=== PATIENT | male | born 1970 | race Caucasian/White ===

== ENCOUNTER 2017-06-20 16:59 | Inpatient (IN) | payer OTHER ==
[2017-06-20 18:18] LABS: ADD MAN DIFF? NO
[2017-06-20 18:20] LABS: WHITE BLOOD COUNT 8.8 10^3/ul (4.8-10.8)
[2017-06-20 18:20] LABS: BASOPHIL # 0.1 10^3/ul (0.0-0.1); EOSINOPHILS # 0.2 10^3/ul (0.0-0.5); EOSINOPHILS % 1.8 % (0.0-7.0); HEMATOCRIT 39.2 % (42.0-52.0); HEMOGLOBIN 12.5 g/dl (14.0-18.0); LYMPHOCYTES # 1.7 10^3/ul (0.8-2.9); LYMPHOCYTES % 19.2 % (15.0-51.0); MEAN CORPUSCULAR HEMOGLOBIN 29.5 pg (29.0-33.0); MEAN CORPUSCULAR HGB CONC 31.9 g/dl (32.0-37.0); MEAN CORPUSCULAR VOLUME 92.5 fl (82.0-101.0); MEAN PLATELET VOLUME 11.4 fl (7.4-10.4); MONOCYTE # 0.6 10^3/ul (0.3-0.9); MONOCYTES % 6.9 % (0.0-11.0); NEUTROPHIL # 6.2 10^3/ul (1.6-7.5); NEUTROPHILS % 70.8 % (39.0-77.0); NUCLEATED RED BLOOD CELLS # 0.1 10^3/ul (0.0-0.0); NUCLEATED RED BLOOD CELLS% 0.6 /100WBC (0.0-0.0); PLATELET COUNT 373 10^3/UL (140-415); RED BLOOD COUNT 4.24 10^6/ul (4.70-6.10); RED CELL DISTRIBUTION WIDTH 15.4 % (11.5-14.5)
[2017-06-20 18:38] LABS: ALANINE AMINOTRANSFERASE 78 IU/L (13-69); ALBUMIN 2.7 g/dl (3.3-4.9); ALBUMIN/GLOBULIN RATIO 0.87; ALKALINE PHOSPHATASE 385 IU/L (42-121); ANION GAP 14 (8-16); ASPARTATE AMINO TRANSFERASE 78 IU/L (15-46); BILIRUBIN,INDIRECT 0.9 mg/dl (0-1.1); BILIRUBIN,TOTAL 0.9 mg/dl (0.2-1.3); BLOOD UREA NITROGEN 51 mg/dl (7-20); CALCIUM 8.6 mg/dl (8.4-10.2); CARBON DIOXIDE 24 mmol/L (21-31); CHLORIDE 103 mmol/L (97-110); GLUCOSE 131 mg/dl (70-220); SODIUM 136 mmol/L (135-144); TOTAL PROTEIN 5.8 g/dl (6.1-8.1)
[2017-06-20 18:49] LABS: B-TYPE NATRIURETIC PEPTIDE 15500 PG/ML (0-125); TROPONIN-I 0.064 ng/ml (0.00-0.12)
[2017-06-20 18:54] LABS: INR 1.36; PT RATIO 1.3
[2017-06-20 18:55] LABS: PARTIAL THROMBOPLASTIN TIME 34.9 Sec (25.0-35.0)
[2017-06-20] MEDS ORDERED: ACETAMINOPHEN 325 MG TAB PO (19:30)
[2017-06-20] MEDS ORDERED: ONDANSETRON 4 MG INJ IV (19:30)
[2017-06-20 19:34] LABS: ADD UMIC YES; UR ASCORBIC ACID NEGATIVE (NEGATIVE); UR BILIRUBIN (Dip) NEGATIVE (NEGATIVE); UR BLOOD (Dip) 2+ mg/dL (NEGATIVE); UR CLARITY SLIGHTLY CLOUDY (CLEAR); UR COLOR YELLOW (YELLOW); UR GLUCOSE (Dip) 2+ mg/dL (NEGATIVE); UR KETONES (Dip) NEGATIVE (NEGATIVE); UR LEUKOCYTE ESTERASE (Dip) NEGATIVE Leu/ul (NEGATIVE); UR NITRITE (Dip) NEGATIVE (NEGATIVE); UR RBC 1 /HPF (0-5); UR SPECIFIC GRAVITY (Dip) 1.018 (1.003-1.030); UR TOTAL PROTEIN (Dip) 3+ mg/dl (NEGATIVE); UR UROBILINOGEN (Dip) NEGATIVE (NEGATIVE); UR WBC 2 /HPF (0-5)
[2017-06-20] MEDS: FUROSEMIDE 40 MG INJ IV (19:46)
[2017-06-20] MEDS ORDERED: DEXTROSE 50% 50 ML SYRINGE (21:38)
[2017-06-20] MEDS ORDERED: ALBUTEROL/IPRATROPIUM (NEB) 3 ML AMP HHN (22:00)
[2017-06-20 22:29] LABS: HAAIG REFLEX REFLEX FILED
[2017-06-20 22:46] LABS: CREATINE KINASE 354 IU/L (23-200)
[2017-06-20 22:51] LABS: GLUCOSE 134 mg/dl (70-220)
[2017-06-20 22:59] LABS: CK INDEX 2.8; CK-MB 9.85 ng/ml (0.0-2.4); TROPONIN-I 0.067 ng/ml (0.00-0.12)
[2017-06-20 23:23] LABS: HEPATITIS B SURFACE ANTIGEN NEGATIVE (NEGATIVE)
[2017-06-20 23:27] LABS: CREATININE,URINE RANDOM 131.52 mg/dl (20-370)
[2017-06-20 23:41] LABS: HEPATITIS B CORE ANTIBODY NEGATIVE (NEGATIVE); HEPATITIS C VIRAL ANTIBODY NEGATIVE (NEGATIVE)
[2017-06-20] MEDS: GABAPENTIN 100 MG CAP PO (23:45)
[2017-06-20] MEDS: AMITRIPTYLINE 25 MG TAB PO (23:45)
[2017-06-21 00:49] LABS: PROTEIN URINE > 600.0 mg/dl (0.0-11.9)
[2017-06-21 00:50] LABS: PROTEIN/CREAT RATIO 10.11 RATIO
[2017-06-21] MEDS ORDERED: GLUCAGON 1 MG INJ IM (02:00)
[2017-06-21] MEDS ORDERED: GLUCOSE GEL 15 GRAM TUBE BUCCAL (02:00)
[2017-06-21] MEDS ORDERED: GLUCOSE GEL 15 GRAM TUBE PO (02:00)
[2017-06-21] MEDS: ACCU-CHEK XX (02:00)
[2017-06-21] MEDS: FUROSEMIDE 40 MG INJ IV ×2 (05:53→17:52)
[2017-06-21] MEDS: PANTOPRAZOLE (EC) 40 MG TAB PO (06:40)
[2017-06-21] MEDS: INSULIN ASPART [NOVOLOG] 3 ML PEN SC ×6 (07:55→20:54)
[2017-06-21] MEDS: INSULIN GLARGINE [LANtus] 3 ML PEN SC (08:11)
[2017-06-21] MEDS: GABAPENTIN 100 MG CAP PO ×2 (08:21→20:54)
[2017-06-21] MEDS: ASPIRIN 81 MG TAB PO (08:21)
[2017-06-21] MEDS: DOCUSATE SODIUM 100 MG CAP PO ×2 (08:21→21:26)
[2017-06-21] MEDS: ALLOPURINOL 100 MG TAB PO (08:21)
[2017-06-21 09:38] LABS: ADD MAN DIFF? NO
[2017-06-21 09:44] LABS: WHITE BLOOD COUNT 9.6 10^3/ul (4.8-10.8)
[2017-06-21 09:44] LABS: BASOPHIL # 0.1 10^3/ul (0.0-0.1); EOSINOPHILS # 0.4 10^3/ul (0.0-0.5); EOSINOPHILS % 4.2 % (0.0-7.0); HEMATOCRIT 41.7 % (42.0-52.0); HEMOGLOBIN 13.5 g/dl (14.0-18.0); LYMPHOCYTES # 1.4 10^3/ul (0.8-2.9); LYMPHOCYTES % 15.1 % (15.0-51.0); MEAN CORPUSCULAR HEMOGLOBIN 29.7 pg (29.0-33.0); MEAN CORPUSCULAR HGB CONC 32.4 g/dl (32.0-37.0); MEAN CORPUSCULAR VOLUME 91.9 fl (82.0-101.0); MEAN PLATELET VOLUME 11.3 fl (7.4-10.4); MONOCYTE # 0.5 10^3/ul (0.3-0.9); NEUTROPHIL # 7.1 10^3/ul (1.6-7.5); NEUTROPHILS % 74.3 % (39.0-77.0); NUCLEATED RED BLOOD CELLS% 0.3 /100WBC (0.0-0.0); PLATELET COUNT 371 10^3/UL (140-415); RED BLOOD COUNT 4.54 10^6/ul (4.70-6.10); RED CELL DISTRIBUTION WIDTH 15.7 % (11.5-14.5)
[2017-06-21 10:03] LABS: ALANINE AMINOTRANSFERASE 145 IU/L (13-69); ALBUMIN 2.7 g/dl (3.3-4.9); ALKALINE PHOSPHATASE 412 IU/L (42-121); ANION GAP 13 (8-16); ASPARTATE AMINO TRANSFERASE 158 IU/L (15-46); BILIRUBIN,INDIRECT 0.7 mg/dl (0-1.1); BILIRUBIN,TOTAL 0.7 mg/dl (0.2-1.3); BLOOD UREA NITROGEN 53 mg/dl (7-20); CALCIUM 9.1 mg/dl (8.4-10.2); CARBON DIOXIDE 28 mmol/L (21-31); CHLORIDE 103 mmol/L (97-110); CREATINE KINASE 223 IU/L (23-200); CREATININE 4.93 mg/dl (0.61-1.24); GLUCOSE 89 mg/dl (70-220); POTASSIUM 4.8 mmol/L (3.5-5.1); SODIUM 139 mmol/L (135-144); TOTAL PROTEIN 5.7 g/dl (6.1-8.1)
[2017-06-21 10:04] LABS: PHOSPHORUS 5.8 mg/dl (2.5-4.9)
[2017-06-21 10:13] LABS: CK INDEX 3.8
[2017-06-21 10:17] LABS: CK-MB 8.45 ng/ml (0.0-2.4)
[2017-06-21 10:19] LABS: TROPONIN-I 0.133 ng/ml (0.00-0.12)
[2017-06-21 10:21] LABS: HEMOGLOBIN A1C 6.7 % (0-5.9)
[2017-06-21] MEDS: DEXTROSE 50% 50 ML SYRINGE IV ×4 (11:56→20:47)
[2017-06-21 13:25] LABS: CREATININE,URINE RANDOM 43.91 mg/dl (20-370)
[2017-06-21 13:32] LABS: PROTEIN/CREAT RATIO 8.79 RATIO
[2017-06-21] MEDS: traMADol 50 MG TAB PO (15:09)
[2017-06-21] MEDS: DEXTROSE 5%-0.45% NACL 1,000 ML IV (17:39)
[2017-06-21 19:16] LABS: CREATINE KINASE 183 IU/L (23-200)
[2017-06-21 19:17] LABS: GLUCOSE 161 mg/dl (70-220)
[2017-06-21] MEDS: DEXTROSE 10% 1,000 ML IV ×2 (19:30→20:00)
[2017-06-21 19:31] LABS: CK INDEX 4.9
[2017-06-21 19:34] LABS: CK-MB 8.89 ng/ml (0.0-2.4)
[2017-06-21] MEDS: AMITRIPTYLINE 25 MG TAB PO (20:53)
[2017-06-21] MEDS: METOPROLOL 25 MG TAB PO (20:53)
[2017-06-21] MEDS: ATORVASTATIN 10 MG TAB PO (20:53)
[2017-06-21] MEDS ORDERED: SPECIAL NON-STANDARD MEDICATION PO (21:00)
[2017-06-21 21:16] LABS: GLUCOSE 31 mg/dl (70-220)
[2017-06-22 01:20] LABS: CREATINE KINASE 160 IU/L (23-200)
[2017-06-22 01:30] LABS: CK INDEX 5.5
[2017-06-22 01:34] LABS: CK-MB 8.77 ng/ml (0.0-2.4)
[2017-06-22] MEDS: ACCU-CHEK XX (02:00)
[2017-06-22] MEDS: FUROSEMIDE 40 MG INJ IV ×2 (06:20→18:14)
[2017-06-22] MEDS: PANTOPRAZOLE (EC) 40 MG TAB PO (06:20)
[2017-06-22 07:10] LABS: ADD MAN DIFF? NO
[2017-06-22 07:21] LABS: WHITE BLOOD COUNT 9.4 10^3/ul (4.8-10.8)
[2017-06-22 07:21] LABS: BASOPHIL # 0.1 10^3/ul (0.0-0.1); BASOPHILS % 0.6 % (0.0-2.0); EOSINOPHILS # 0.4 10^3/ul (0.0-0.5); EOSINOPHILS % 4.6 % (0.0-7.0); HEMATOCRIT 41.6 % (42.0-52.0); HEMOGLOBIN 13.2 g/dl (14.0-18.0); LYMPHOCYTES # 1.5 10^3/ul (0.8-2.9); LYMPHOCYTES % 15.9 % (15.0-51.0); MEAN CORPUSCULAR HEMOGLOBIN 29.5 pg (29.0-33.0); MEAN CORPUSCULAR HGB CONC 31.7 g/dl (32.0-37.0); MEAN CORPUSCULAR VOLUME 92.9 fl (82.0-101.0); MEAN PLATELET VOLUME 11.3 fl (7.4-10.4); MONOCYTE # 0.7 10^3/ul (0.3-0.9); MONOCYTES % 7.1 % (0.0-11.0); NEUTROPHIL # 6.7 10^3/ul (1.6-7.5); NEUTROPHILS % 71.5 % (39.0-77.0); PLATELET COUNT 330 10^3/UL (140-415); RED BLOOD COUNT 4.48 10^6/ul (4.70-6.10); RED CELL DISTRIBUTION WIDTH 15.7 % (11.5-14.5)
[2017-06-22 07:45] LABS: PHOSPHORUS 5.5 mg/dl (2.5-4.9)
[2017-06-22 07:48] LABS: CHOL/HDL RATIO 2.1 RATIO; HDL CHOLESTEROL 74 mg/dl (27-67); LDL CHOLESTEROL,CALCULATED 64 mg/dl; TRIGLYCERIDES 112 mg/dl (0-149)
[2017-06-22 07:48] LABS: CHOLESTEROL 160 mg/dl (100-200)
[2017-06-22] MEDS: INSULIN ASPART [NOVOLOG] 3 ML PEN SC ×4 (07:55→21:05)
[2017-06-22 08:34] LABS: ANION GAP 10 (8-16); BLOOD UREA NITROGEN 54 mg/dl (7-20); CALCIUM 8.4 mg/dl (8.4-10.2); CARBON DIOXIDE 30 mmol/L (21-31); CHLORIDE 104 mmol/L (97-110); CREATININE 4.95 mg/dl (0.61-1.24); GLUCOSE 101 mg/dl (70-220); POTASSIUM 3.9 mmol/L (3.5-5.1); SODIUM 140 mmol/L (135-144)
[2017-06-22] MEDS ORDERED: FUROSEMIDE 40 MG INJ IV (09:00)
[2017-06-22] MEDS: ASPIRIN 81 MG TAB PO (09:42)
[2017-06-22] MEDS: GABAPENTIN 100 MG CAP PO ×2 (09:43→20:54)
[2017-06-22] MEDS: DOCUSATE SODIUM 100 MG CAP PO ×2 (09:43→20:54)
[2017-06-22] MEDS: METOPROLOL 25 MG TAB PO (09:43)
[2017-06-22] MEDS: ALLOPURINOL 100 MG TAB PO (09:44)
[2017-06-22] MEDS ORDERED: HEPARIN 1000 UNITS/ML 10 ML INJ IV (13:30)
[2017-06-22] MEDS: HEPARIN 1000 UNITS/ML 10 ML INJ IV ×2 (13:30→16:51)
[2017-06-22 14:36] LABS: ADD MAN DIFF? NO
[2017-06-22 14:44] LABS: BASOPHIL # 0.1 10^3/ul (0.0-0.1); BASOPHILS % 0.6 % (0.0-2.0); EOSINOPHILS # 0.5 10^3/ul (0.0-0.5); EOSINOPHILS % 5.7 % (0.0-7.0); HEMOGLOBIN 12.3 g/dl (14.0-18.0); LYMPHOCYTES # 1.3 10^3/ul (0.8-2.9); LYMPHOCYTES % 13.6 % (15.0-51.0); MEAN CORPUSCULAR HEMOGLOBIN 29.5 pg (29.0-33.0); MEAN CORPUSCULAR HGB CONC 32.4 g/dl (32.0-37.0); MEAN CORPUSCULAR VOLUME 91.1 fl (82.0-101.0); MEAN PLATELET VOLUME 11.6 fl (7.4-10.4); MONOCYTE # 0.5 10^3/ul (0.3-0.9); MONOCYTES % 5.1 % (0.0-11.0); NEUTROPHIL # 6.9 10^3/ul (1.6-7.5); NEUTROPHILS % 74.7 % (39.0-77.0); NUCLEATED RED BLOOD CELLS% 0.2 /100WBC (0.0-0.0); PLATELET COUNT 295 10^3/UL (140-415); RED BLOOD COUNT 4.17 10^6/ul (4.70-6.10); RED CELL DISTRIBUTION WIDTH 15.7 % (11.5-14.5)
[2017-06-22 14:44] LABS: WHITE BLOOD COUNT 9.3 10^3/ul (4.8-10.8)
[2017-06-22 15:01] LABS: INR 1.17; PARTIAL THROMBOPLASTIN TIME 32.6 Sec (25.0-35.0); PROTIME 15.1 Sec (11.9-14.9); PT RATIO 1.2
[2017-06-22] MEDS: HEPARIN 25000 UNITS/250 ML 250 ML IV (16:52)
[2017-06-22 19:47] LABS: PTH CALCIUM 8.6 mg/dL (8.6-10.3)
[2017-06-22] MEDS: ATORVASTATIN 10 MG TAB PO (20:54)
[2017-06-22] MEDS: AMITRIPTYLINE 25 MG TAB PO (20:55)
[2017-06-22] MEDS: METOPROLOL (XL) 25 MG TAB PO (20:55)
[2017-06-22 23:19] LABS: INR 1.19; PROTIME 15.3 Sec (11.9-14.9); PT RATIO 1.2
[2017-06-22 23:58] LABS: PARTIAL THROMBOPLASTIN TIME 101.7 Sec (25.0-35.0)
[2017-06-23] MEDS: ACCU-CHEK XX (02:03)
[2017-06-23] MEDS: FUROSEMIDE 40 MG INJ IV ×2 (06:05→09:26)
[2017-06-23 06:11] LABS: ADD MAN DIFF? NO
[2017-06-23 06:24] LABS: PLATELET COUNT 312 10^3/UL (140-415)
[2017-06-23 06:26] LABS: WHITE BLOOD COUNT 9.3 10^3/ul (4.8-10.8)
[2017-06-23 06:26] LABS: BASOPHIL # 0.1 10^3/ul (0.0-0.1); BASOPHILS % 0.7 % (0.0-2.0); EOSINOPHILS # 0.4 10^3/ul (0.0-0.5); EOSINOPHILS % 4.4 % (0.0-7.0); HEMATOCRIT 40.7 % (42.0-52.0); HEMOGLOBIN 12.9 g/dl (14.0-18.0); LYMPHOCYTES # 1.2 10^3/ul (0.8-2.9); LYMPHOCYTES % 12.5 % (15.0-51.0); MEAN CORPUSCULAR HEMOGLOBIN 29.2 pg (29.0-33.0); MEAN CORPUSCULAR HGB CONC 31.7 g/dl (32.0-37.0); MEAN CORPUSCULAR VOLUME 92.1 fl (82.0-101.0); MEAN PLATELET VOLUME 11.7 fl (7.4-10.4); MONOCYTE # 0.6 10^3/ul (0.3-0.9); MONOCYTES % 6.1 % (0.0-11.0); NEUTROPHIL # 7.1 10^3/ul (1.6-7.5); PLATELET COUNT 302 10^3/UL (140-415); RED BLOOD COUNT 4.42 10^6/ul (4.70-6.10); RED CELL DISTRIBUTION WIDTH 15.8 % (11.5-14.5)
[2017-06-23 06:48] LABS: INR 1.12; PROTIME 14.6 Sec (11.9-14.9); PT RATIO 1.1
[2017-06-23 06:49] LABS: PARTIAL THROMBOPLASTIN TIME 50.8 Sec (25.0-35.0)
[2017-06-23 06:56] LABS: ANION GAP 13 (8-16); BLOOD UREA NITROGEN 58 mg/dl (7-20); CALCIUM 8.4 mg/dl (8.4-10.2); CARBON DIOXIDE 28 mmol/L (21-31); CHLORIDE 102 mmol/L (97-110); CREATININE 4.78 mg/dl (0.61-1.24); GLUCOSE 342 mg/dl (70-220); POTASSIUM 4.8 mmol/L (3.5-5.1); SODIUM 138 mmol/L (135-144)
[2017-06-23 07:39] LABS: THROMBIN TIME 35.7 SEC (13.8-19.1)
[2017-06-23] MEDS: INSULIN ASPART [NOVOLOG] 3 ML PEN SC ×4 (08:25→20:32)
[2017-06-23] MEDS: DOCUSATE SODIUM 100 MG CAP PO ×2 (09:00→21:00)
[2017-06-23] MEDS: METOPROLOL (XL) 25 MG TAB PO ×2 (09:26→21:00)
[2017-06-23] MEDS: GABAPENTIN 100 MG CAP PO ×2 (09:27→21:00)
[2017-06-23] MEDS: PANTOPRAZOLE (EC) 40 MG TAB PO (09:27)
[2017-06-23] MEDS: ALLOPURINOL 100 MG TAB PO (09:27)
[2017-06-23] MEDS: ASPIRIN 81 MG TAB PO (09:28)
[2017-06-23] MEDS: LINAGLIPTIN 5 MG TABLET PO (13:09)
[2017-06-23 13:18] LABS: PLATELET COUNT 307 10^3/UL (140-415)
[2017-06-23 13:32] LABS: CREATINE KINASE 62 IU/L (23-200)
[2017-06-23 13:41] LABS: CK INDEX 5.1
[2017-06-23 13:42] LABS: CK-MB 3.18 ng/ml (0.0-2.4); INR 1.13; PROTIME 14.7 Sec (11.9-14.9); PT RATIO 1.1
[2017-06-23 13:43] LABS: PARTIAL THROMBOPLASTIN TIME 58.7 Sec (25.0-35.0); THROMBIN TIME 34.6 SEC (13.8-19.1)
[2017-06-23 13:46] LABS: TROPONIN-I 0.703 ng/ml (0.00-0.12)
[2017-06-23] MEDS: ALPRAZOLAM 0.25 MG TAB PO (16:32)
[2017-06-23] MEDS: HEPARIN 25000 UNITS/250 ML 250 ML IV (18:17)
[2017-06-23 19:04] LABS: PARTIAL THROMBOPLASTIN TIME 64.5 Sec (25.0-35.0)
[2017-06-23] MEDS: INSULIN GLARGINE [LANtus] 3 ML PEN SC (20:22)
[2017-06-23] MEDS: ATORVASTATIN 10 MG TAB PO (21:00)
[2017-06-23] MEDS: AMITRIPTYLINE 25 MG TAB PO (21:00)
[2017-06-24] MEDS: traMADol 50 MG TAB PO (00:46)
[2017-06-24] MEDS: ACCU-CHEK XX (01:00)
[2017-06-24 06:54] LABS: CREATINE KINASE 45 IU/L (23-200)
[2017-06-24 07:01] LABS: PARTIAL THROMBOPLASTIN TIME 63.8 Sec (25.0-35.0)
[2017-06-24 07:03] LABS: CK INDEX 4.6
[2017-06-24 07:04] LABS: CK-MB 2.09 ng/ml (0.0-2.4)
[2017-06-24 07:20] LABS: ANION GAP 16 (8-16); BLOOD UREA NITROGEN 58 mg/dl (7-20); CALCIUM 8.8 mg/dl (8.4-10.2); CARBON DIOXIDE 28 mmol/L (21-31); CHLORIDE 98 mmol/L (97-110); CREATININE 4.41 mg/dl (0.61-1.24); GLUCOSE 252 mg/dl (70-220); SODIUM 137 mmol/L (135-144)
[2017-06-24] MEDS: INSULIN ASPART [NOVOLOG] 3 ML PEN SC ×4 (08:10→21:21)
[2017-06-24] MEDS: INSULIN GLARGINE [LANtus] 3 ML PEN SC ×3 (08:10→22:41)
[2017-06-24] MEDS: DOCUSATE SODIUM 100 MG CAP PO ×2 (09:00→21:23)
[2017-06-24] MEDS: ALLOPURINOL 100 MG TAB PO (09:02)
[2017-06-24] MEDS: LINAGLIPTIN 5 MG TABLET PO (09:02)
[2017-06-24] MEDS: GABAPENTIN 100 MG CAP PO ×2 (09:02→21:23)
[2017-06-24] MEDS: PANTOPRAZOLE (EC) 40 MG TAB PO (09:02)
[2017-06-24] MEDS: METOPROLOL (XL) 25 MG TAB PO ×2 (09:03→21:23)
[2017-06-24] MEDS: ASPIRIN 81 MG TAB PO (09:03)
[2017-06-24] MEDS: FUROSEMIDE 40 MG INJ IV (09:03)
[2017-06-24 14:40] LABS: PARTIAL THROMBOPLASTIN TIME 57.7 Sec (25.0-35.0)
[2017-06-24] MEDS: AMITRIPTYLINE 25 MG TAB PO (21:23)
[2017-06-24] MEDS: ATORVASTATIN 10 MG TAB PO (21:23)
[2017-06-24] MEDS ORDERED: INSULIN GLARGINE [LANtus] 3 ML PEN SC (22:30)
[2017-06-24] MEDS: HEPARIN 25000 UNITS/250 ML 250 ML IV (23:44)
[2017-06-25] MEDS: ACCU-CHEK XX (02:00)
[2017-06-25 06:41] LABS: PTH INTACT 390 pg/mL (14-64)
[2017-06-25] MEDS: PANTOPRAZOLE (EC) 40 MG TAB PO (06:44)
[2017-06-25] MEDS: INSULIN ASPART [NOVOLOG] 3 ML PEN SC ×5 (07:55→20:22)
[2017-06-25] MEDS: ASPIRIN 81 MG TAB PO (08:53)
[2017-06-25] MEDS: LINAGLIPTIN 5 MG TABLET PO (08:53)
[2017-06-25] MEDS: GABAPENTIN 100 MG CAP PO ×2 (08:54→20:18)
[2017-06-25] MEDS: METOPROLOL (XL) 25 MG TAB PO ×2 (08:55→20:18)
[2017-06-25] MEDS: DOCUSATE SODIUM 100 MG CAP PO ×2 (08:55→20:19)
[2017-06-25] MEDS: FUROSEMIDE 40 MG INJ IV (08:55)
[2017-06-25] MEDS: ALLOPURINOL 100 MG TAB PO (08:55)
[2017-06-25 09:29] LABS: PARTIAL THROMBOPLASTIN TIME 56.3 Sec (25.0-35.0)
[2017-06-25] MEDS ORDERED: INSULIN ASPART [NOVOLOG] 3 ML PEN SC (17:55)
[2017-06-25 19:11] LABS: ANION GAP 12 (8-16); BLOOD UREA NITROGEN 61 mg/dl (7-20); CALCIUM 9.1 mg/dl (8.4-10.2); CARBON DIOXIDE 30 mmol/L (21-31); CHLORIDE 98 mmol/L (97-110); CREATININE 4.39 mg/dl (0.61-1.24); GLUCOSE 328 mg/dl (70-220); POTASSIUM 5.4 mmol/L (3.5-5.1); SODIUM 135 mmol/L (135-144)
[2017-06-25] MEDS ORDERED: INSULIN GLARGINE [LANtus] 3 ML PEN SC ×2 (20:00)
[2017-06-25] MEDS: ATORVASTATIN 10 MG TAB PO (20:18)
[2017-06-25] MEDS: AMITRIPTYLINE 25 MG TAB PO (20:18)
[2017-06-25] MEDS: INSULIN GLARGINE [LANtus] 3 ML PEN SC (20:21)
[2017-06-25 20:52] LABS: PARTIAL THROMBOPLASTIN TIME 45.2 Sec (25.0-35.0)
[2017-06-26] MEDS: ACCU-CHEK XX (01:26)
[2017-06-26] MEDS: PANTOPRAZOLE (EC) 40 MG TAB PO (07:25)
[2017-06-26] MEDS: INSULIN ASPART [NOVOLOG] 3 ML PEN SC ×8 (07:55→20:34)
[2017-06-26] MEDS: FUROSEMIDE 40 MG INJ IV (08:58)
[2017-06-26] MEDS: GABAPENTIN 100 MG CAP PO ×2 (09:00→20:19)
[2017-06-26] MEDS: ASPIRIN 81 MG TAB PO (09:00)
[2017-06-26] MEDS: DOCUSATE SODIUM 100 MG CAP PO ×2 (09:00→20:19)
[2017-06-26] MEDS: METOPROLOL (XL) 25 MG TAB PO ×2 (09:00→20:31)
[2017-06-26] MEDS: LINAGLIPTIN 5 MG TABLET PO (09:00)
[2017-06-26] MEDS: ALLOPURINOL 100 MG TAB PO (09:00)
[2017-06-26 12:25] LABS: ADD MAN DIFF? NO
[2017-06-26 12:33] LABS: BASOPHIL # 0.1 10^3/ul (0.0-0.1); BASOPHILS % 0.9 % (0.0-2.0); EOSINOPHILS # 0.3 10^3/ul (0.0-0.5); EOSINOPHILS % 3.2 % (0.0-7.0); HEMATOCRIT 41.2 % (42.0-52.0); HEMOGLOBIN 13.1 g/dl (14.0-18.0); LYMPHOCYTES # 1.1 10^3/ul (0.8-2.9); MEAN CORPUSCULAR HEMOGLOBIN 29.3 pg (29.0-33.0); MEAN CORPUSCULAR HGB CONC 31.8 g/dl (32.0-37.0); MEAN CORPUSCULAR VOLUME 92.2 fl (82.0-101.0); MONOCYTE # 0.6 10^3/ul (0.3-0.9); MONOCYTES % 7.8 % (0.0-11.0); NEUTROPHILS % 73.7 % (39.0-77.0); PLATELET COUNT 309 10^3/UL (140-415); RED BLOOD COUNT 4.47 10^6/ul (4.70-6.10); RED CELL DISTRIBUTION WIDTH 15.9 % (11.5-14.5)
[2017-06-26 12:33] LABS: WHITE BLOOD COUNT 8.1 10^3/ul (4.8-10.8)
[2017-06-26 12:54] LABS: ALANINE AMINOTRANSFERASE 63 IU/L (13-69); ALBUMIN 2.6 g/dl (3.3-4.9); ALBUMIN/GLOBULIN RATIO 0.83; ALKALINE PHOSPHATASE 312 IU/L (42-121); ANION GAP 10 (8-16); ASPARTATE AMINO TRANSFERASE 39 IU/L (15-46); BILIRUBIN,INDIRECT 0.5 mg/dl (0-1.1); BILIRUBIN,TOTAL 0.5 mg/dl (0.2-1.3); BLOOD UREA NITROGEN 66 mg/dl (7-20); CALCIUM 9.4 mg/dl (8.4-10.2); CARBON DIOXIDE 32 mmol/L (21-31); CHLORIDE 102 mmol/L (97-110); CREATININE 4.52 mg/dl (0.61-1.24); GLUCOSE 396 mg/dl (70-220); POTASSIUM 5.3 mmol/L (3.5-5.1); SODIUM 139 mmol/L (135-144); TOTAL PROTEIN 5.7 g/dl (6.1-8.1)
[2017-06-26] MEDS: HEPARIN 1000 UNITS/ML 10 ML INJ CATHETER (14:00)
[2017-06-26] MEDS ORDERED: SODIUM CHLORIDE 0.9% 1L BAG IV (17:00)
[2017-06-26] MEDS ORDERED: HEPARIN 1000 UNITS/ML 10 ML INJ CATHETER (17:00)
[2017-06-26] MEDS: NA POLYST SULFON 15 GM/60 ML BTL PO (18:25)
[2017-06-26] MEDS: ATORVASTATIN 10 MG TAB PO (20:19)
[2017-06-26] MEDS: traMADol 50 MG TAB PO (20:19)
[2017-06-26] MEDS: AMITRIPTYLINE 25 MG TAB PO (20:19)
[2017-06-26] MEDS: INSULIN GLARGINE [LANtus] 3 ML PEN SC (20:34)
[2017-06-26 20:43] LABS: GLUCOSE 432 mg/dl (70-220)
[2017-06-26] MEDS: ACETAMINOPHEN 325 MG TAB PO (23:35)
[2017-06-27] MEDS ORDERED: morphine LIQ (10 MG/5 ML) CUP PO (00:30)
[2017-06-27] MEDS: HYDROCODONE/APAP (5/325) TAB PO ×2 (00:58→22:42)
[2017-06-27] MEDS: ACCU-CHEK XX (02:00)
[2017-06-27] MEDS: PANTOPRAZOLE (EC) 40 MG TAB PO (06:25)
[2017-06-27] MEDS: GABAPENTIN 100 MG CAP PO ×2 (08:12→20:50)
[2017-06-27] MEDS: ASPIRIN 81 MG TAB PO (08:14)
[2017-06-27] MEDS: ALLOPURINOL 100 MG TAB PO (08:14)
[2017-06-27] MEDS: DOCUSATE SODIUM 100 MG CAP PO ×2 (08:15→20:50)
[2017-06-27] MEDS: LINAGLIPTIN 5 MG TABLET PO (08:16)
[2017-06-27] MEDS: INSULIN ASPART [NOVOLOG] 3 ML PEN SC ×7 (08:18→20:52)
[2017-06-27] MEDS: INSULIN GLARGINE [LANtus] 3 ML PEN SC ×2 (08:20→20:52)
[2017-06-27] MEDS: METOPROLOL (XL) 25 MG TAB PO ×2 (08:23→20:51)
[2017-06-27] MEDS: FUROSEMIDE 40 MG INJ IV (08:24)
[2017-06-27] MEDS: MANNITOL 25% 50 ML INJ IV* (11:17)
[2017-06-27] MEDS: MANNITOL 25% 50 ML INJ IV (12:06)
[2017-06-27 12:23] LABS: ANION GAP 9 (8-16); BLOOD UREA NITROGEN 58 mg/dl (7-20); CALCIUM 8.6 mg/dl (8.4-10.2); CARBON DIOXIDE 29 mmol/L (21-31); CHLORIDE 103 mmol/L (97-110); CREATININE 3.92 mg/dl (0.61-1.24); GLUCOSE 128 mg/dl (70-220); SODIUM 137 mmol/L (135-144)
[2017-06-27] MEDS: DIAZEPAM 5 MG TAB PO (13:30)
[2017-06-27] MEDS: DIPHENHYDRAMINE 50 MG CAP PO (13:30)
[2017-06-27] MEDS: AMITRIPTYLINE 25 MG TAB PO (20:50)
[2017-06-27] MEDS: ATORVASTATIN 10 MG TAB PO (20:51)
[2017-06-28] MEDS: traMADol 50 MG TAB PO (00:22)
[2017-06-28] MEDS: ACCU-CHEK XX (02:51)
[2017-06-28 07:02] LABS: ADD MAN DIFF? NO
[2017-06-28 07:12] LABS: WHITE BLOOD COUNT 7.3 10^3/ul (4.8-10.8)
[2017-06-28 07:12] LABS: BASOPHIL # 0.1 10^3/ul (0.0-0.1); BASOPHILS % 0.7 % (0.0-2.0); EOSINOPHILS # 0.4 10^3/ul (0.0-0.5); EOSINOPHILS % 5.5 % (0.0-7.0); HEMOGLOBIN 12.5 g/dl (14.0-18.0); LYMPHOCYTES # 1.5 10^3/ul (0.8-2.9); LYMPHOCYTES % 20.8 % (15.0-51.0); MEAN CORPUSCULAR HEMOGLOBIN 28.9 pg (29.0-33.0); MEAN CORPUSCULAR HGB CONC 31.3 g/dl (32.0-37.0); MEAN CORPUSCULAR VOLUME 92.4 fl (82.0-101.0); MEAN PLATELET VOLUME 11.7 fl (7.4-10.4); MONOCYTE # 0.5 10^3/ul (0.3-0.9); MONOCYTES % 7.4 % (0.0-11.0); NEUTROPHIL # 4.8 10^3/ul (1.6-7.5); NEUTROPHILS % 65.2 % (39.0-77.0); PLATELET COUNT 288 10^3/UL (140-415); RED BLOOD COUNT 4.33 10^6/ul (4.70-6.10); RED CELL DISTRIBUTION WIDTH 16.1 % (11.5-14.5)
[2017-06-28] MEDS: PANTOPRAZOLE (EC) 40 MG TAB PO (07:25)
[2017-06-28 07:28] LABS: PHOSPHORUS 4.1 mg/dl (2.5-4.9)
[2017-06-28 07:29] LABS: ANION GAP 9 (8-16); BLOOD UREA NITROGEN 44 mg/dl (7-20); CALCIUM 9.2 mg/dl (8.4-10.2); CARBON DIOXIDE 33 mmol/L (21-31); CHLORIDE 103 mmol/L (97-110); CREATININE 3.47 mg/dl (0.61-1.24); GLUCOSE 193 mg/dl (70-220); POTASSIUM 5.5 mmol/L (3.5-5.1); SODIUM 139 mmol/L (135-144)
[2017-06-28] MEDS: INSULIN ASPART [NOVOLOG] 3 ML PEN SC ×7 (07:55→20:52)
[2017-06-28] MEDS: ASPIRIN 81 MG TAB PO (08:45)
[2017-06-28] MEDS: GABAPENTIN 100 MG CAP PO ×2 (08:45→20:38)
[2017-06-28] MEDS: LINAGLIPTIN 5 MG TABLET PO (08:45)
[2017-06-28] MEDS: ALLOPURINOL 100 MG TAB PO (08:46)
[2017-06-28] MEDS: FUROSEMIDE 40 MG INJ IV (09:00)
[2017-06-28] MEDS: DOCUSATE SODIUM 100 MG CAP PO ×2 (09:00→20:38)
[2017-06-28] MEDS: INSULIN GLARGINE [LANtus] 3 ML PEN SC ×2 (09:00→20:57)
[2017-06-28] MEDS: METOPROLOL (XL) 25 MG TAB PO ×2 (09:00→20:39)
[2017-06-28] MEDS ORDERED: HEPARIN 1000 UNITS/ML 10 ML INJ (09:08)
[2017-06-28] MEDS ORDERED: IODIXANOL LOCM 100 ML BTL (09:08)
[2017-06-28] MEDS ORDERED: MIDAZOLAM 1 MG/ML 2 ML INJ (09:08)
[2017-06-28] MEDS ORDERED: LIDOCAINE 1% (MDV) 20 ML INJ (09:08)
[2017-06-28] MEDS ORDERED: SOD CHLORIDE 0.9% 500 ML (09:09)
[2017-06-28] MEDS ORDERED: FENTAnyl 50 MCG/ML VIAL (09:09)
[2017-06-28] MEDS ORDERED: ONDANSETRON 4 MG INJ IV (10:30)
[2017-06-28] MEDS ORDERED: ACETAMINOPHEN 325 MG TAB PO (10:30)
[2017-06-28] MEDS: SOD CHLORIDE 0.9% 1,000 ML IV (11:31)
[2017-06-28] MEDS ORDERED: SODIUM CHLORIDE 0.9% 1L BAG IV (14:30)
[2017-06-28] MEDS ORDERED: ALBUMIN HUMAN 25% 100 ML IV (14:30)
[2017-06-28 16:58] LABS: INR 0.98; PROTIME 13.1 Sec (11.9-14.9)
[2017-06-28] MEDS: AMITRIPTYLINE 25 MG TAB PO (20:38)
[2017-06-28] MEDS: ATORVASTATIN 10 MG TAB PO (20:38)
[2017-06-28] MEDS: DEXTROSE 5%-0.45% NACL 1,000 ML IV (20:39)
[2017-06-28] MEDS: HYDROCODONE/APAP (5/325) TAB PO (21:02)
[2017-06-29] MEDS: ACCU-CHEK XX (02:00)
[2017-06-29] MEDS ORDERED: ONDANSETRON 4 MG INJ (07:00)
[2017-06-29] MEDS ORDERED: LIDOCAINE 2% (SDV) 5 ML INJ (07:00)
[2017-06-29] MEDS ORDERED: GLYCOPYRROLATE 0.4 MG INJ (07:00)
[2017-06-29] MEDS ORDERED: DEXAMETHASONE 4 MG/ML 1 ML INJ (07:00)
[2017-06-29] MEDS ORDERED: ROCURONIUM 50 MG INJ (07:00)
[2017-06-29] MEDS ORDERED: FENTAnyl 50 MCG/ML VIAL (07:00)
[2017-06-29] MEDS ORDERED: SUCCINYLCHOLINE CHLORIDE 100 MG/5 ML SYG IV (07:00)
[2017-06-29] MEDS ORDERED: NEOSTIGMINE 3 MG/3 ML SYRINGE (07:00)
[2017-06-29] MEDS ORDERED: CEFAZOLIN 1 GM INJ (07:00)
[2017-06-29] MEDS ORDERED: PROPOFOL 200 MG INJ (07:00)
[2017-06-29] MEDS: INSULIN ASPART [NOVOLOG] 3 ML PEN SC ×7 (08:16→21:16)
[2017-06-29] MEDS: PANTOPRAZOLE (EC) 40 MG TAB PO (08:19)
[2017-06-29] MEDS: FUROSEMIDE 40 MG/4 ML CUP NGT (08:20)
[2017-06-29] MEDS: METOPROLOL (XL) 25 MG TAB PO ×2 (08:21→20:14)
[2017-06-29] MEDS: LISINOPRIL 5 MG TAB PO (08:21)
[2017-06-29] MEDS: LINAGLIPTIN 5 MG TABLET PO (08:22)
[2017-06-29] MEDS: GABAPENTIN 100 MG CAP PO ×2 (08:26→20:14)
[2017-06-29] MEDS: ALLOPURINOL 100 MG TAB PO ×2 (08:26→17:00)
[2017-06-29 08:27] LABS: ADD MAN DIFF? NO
[2017-06-29] MEDS: DOCUSATE SODIUM 100 MG CAP PO ×2 (08:27→20:14)
[2017-06-29] MEDS: INSULIN GLARGINE [LANtus] 3 ML PEN SC ×2 (08:28→21:14)
[2017-06-29 08:31] LABS: WHITE BLOOD COUNT 8.8 10^3/ul (4.8-10.8)
[2017-06-29 08:31] LABS: BASOPHILS % 0.5 % (0.0-2.0); EOSINOPHILS # 0.4 10^3/ul (0.0-0.5); HEMATOCRIT 40.5 % (42.0-52.0); HEMOGLOBIN 12.8 g/dl (14.0-18.0); LYMPHOCYTES # 1.4 10^3/ul (0.8-2.9); MEAN CORPUSCULAR HEMOGLOBIN 29.2 pg (29.0-33.0); MEAN CORPUSCULAR HGB CONC 31.6 g/dl (32.0-37.0); MEAN CORPUSCULAR VOLUME 92.5 fl (82.0-101.0); MEAN PLATELET VOLUME 12.1 fl (7.4-10.4); MONOCYTE # 0.6 10^3/ul (0.3-0.9); MONOCYTES % 7.3 % (0.0-11.0); NEUTROPHIL # 6.3 10^3/ul (1.6-7.5); NEUTROPHILS % 71.9 % (39.0-77.0); PLATELET COUNT 293 10^3/UL (140-415); RED BLOOD COUNT 4.38 10^6/ul (4.70-6.10); RED CELL DISTRIBUTION WIDTH 15.9 % (11.5-14.5)
[2017-06-29 08:53] LABS: ANION GAP 11 (8-16); BLOOD UREA NITROGEN 37 mg/dl (7-20); CARBON DIOXIDE 30 mmol/L (21-31); CHLORIDE 103 mmol/L (97-110); CREATININE 3.17 mg/dl (0.61-1.24); GLUCOSE 184 mg/dl (70-220); MAGNESIUM 1.9 mg/dl (1.7-2.5); POTASSIUM 4.9 mmol/L (3.5-5.1); SODIUM 139 mmol/L (135-144)
[2017-06-29 08:53] LABS: PHOSPHORUS 3.6 mg/dl (2.5-4.9)
[2017-06-29] MEDS ORDERED: IOHEXOL 300MG/ML 30 ML BTL (14:13)
[2017-06-29] MEDS: HEPARIN 1000 UNITS/ML 10 ML INJ ×2 (14:58→15:25)
[2017-06-29] MEDS: LIDOCAINE 1% (MPF) 30 ML INJ (15:00)
[2017-06-29] MEDS ORDERED: NON-FORMULARY/PATIENT OWN MED (Omeprazole* 40 MG) PO (16:00)
[2017-06-29] MEDS: ASPIRIN (EC) 81 MG TAB PO (16:00)
[2017-06-29] MEDS ORDERED: traMADol 50 MG TAB PO (16:00)
[2017-06-29] MEDS ORDERED: NON-FORMULARY/PATIENT OWN MED (Insulin Lispro (Humalog Kwikpen U-100) 8 UNIT) SQ (17:25)
[2017-06-29] MEDS ORDERED: ALBUMIN HUMAN 25% 50 ML IV (18:00)
[2017-06-29] MEDS: HYDROCODONE/APAP (5/325) TAB PO (18:26)
[2017-06-29] MEDS: ATORVASTATIN 10 MG TAB PO (20:14)
[2017-06-29] MEDS: AMITRIPTYLINE 25 MG TAB PO (20:14)
[2017-06-29] MEDS: LISINOPRIL 10 MG TAB PO (20:15)
[2017-06-29] MEDS: traMADol 50 MG TAB PO (20:16)
[2017-06-29] MEDS ORDERED: NON-FORMULARY/PATIENT OWN MED (Pravastatin Sodium* 20 MG) PO (21:00)
[2017-06-29] MEDS ORDERED: GABAPENTIN 100 MG CAP PO (21:00)
[2017-06-29] MEDS ORDERED: AMITRIPTYLINE 25 MG TAB PO (21:00)
[2017-06-30] MEDS: ACCU-CHEK XX (02:00)
[2017-06-30] MEDS: morphine 2 MG INJ IV (05:27)
[2017-06-30] MEDS: PANTOPRAZOLE (EC) 40 MG TAB PO (06:27)
[2017-06-30] MEDS: INSULIN ASPART [NOVOLOG] 3 ML PEN SC ×7 (08:38→20:56)
[2017-06-30] MEDS: FUROSEMIDE 40 MG/4 ML CUP NGT (08:41)
[2017-06-30] MEDS: DOCUSATE SODIUM 100 MG CAP PO ×2 (08:41→20:53)
[2017-06-30] MEDS: ASPIRIN (EC) 81 MG TAB PO (08:41)
[2017-06-30] MEDS: GABAPENTIN 100 MG CAP PO ×2 (08:42→20:54)
[2017-06-30] MEDS: ALLOPURINOL 100 MG TAB PO ×2 (08:42→08:53)
[2017-06-30] MEDS: INSULIN GLARGINE [LANtus] 3 ML PEN SC ×2 (08:46→22:12)
[2017-06-30] MEDS: METOPROLOL (XL) 25 MG TAB PO ×2 (08:50→20:55)
[2017-06-30] MEDS: LISINOPRIL 10 MG TAB PO ×2 (08:51→20:54)
[2017-06-30] MEDS: LINAGLIPTIN 5 MG TABLET PO (08:52)
[2017-06-30] MEDS: ASPIRIN 81 MG TAB PO (08:53)
[2017-06-30] MEDS: CEPASTAT LOZENGE MT (13:34)
[2017-06-30] MEDS: HEPARIN 1000 UNITS/ML 10 ML INJ CATHETER (13:39)
[2017-06-30] MEDS: HYDROCODONE/APAP (5/325) TAB PO (17:48)
[2017-06-30] MEDS: GLUCOSE GEL 15 GRAM TUBE PO (20:52)
[2017-06-30] MEDS: AMITRIPTYLINE 25 MG TAB PO (20:54)
[2017-06-30] MEDS: ATORVASTATIN 10 MG TAB PO (20:54)
[2017-06-30] MEDS: DEXTROSE 50% 50 ML SYRINGE IV (21:05)
[2017-07-01] MEDS: morphine 2 MG INJ IV ×4 (01:55→23:40)
[2017-07-01] MEDS: ACCU-CHEK XX (02:00)
[2017-07-01] MEDS: PANTOPRAZOLE (EC) 40 MG TAB PO (05:24)
[2017-07-01 07:28] LABS: ANION GAP 13 (8-16); BLOOD UREA NITROGEN 36 mg/dl (7-20); CALCIUM 9.2 mg/dl (8.4-10.2); CARBON DIOXIDE 29 mmol/L (21-31); CHLORIDE 102 mmol/L (97-110); CREATININE 3.31 mg/dl (0.61-1.24); POTASSIUM 4.2 mmol/L (3.5-5.1); SODIUM 140 mmol/L (135-144)
[2017-07-01 07:49] LABS: GLUCOSE 37 mg/dl (70-220)
[2017-07-01] MEDS: INSULIN ASPART [NOVOLOG] 3 ML PEN SC ×7 (07:55→20:50)
[2017-07-01] MEDS: CEPASTAT LOZENGE MT ×2 (08:05→14:41)
[2017-07-01] MEDS: LISINOPRIL 10 MG TAB PO ×2 (08:05→20:47)
[2017-07-01] MEDS: HYDROCODONE/APAP (5/325) TAB PO ×2 (08:05→13:21)
[2017-07-01] MEDS: ASPIRIN (EC) 81 MG TAB PO (08:05)
[2017-07-01] MEDS: ALLOPURINOL 100 MG TAB PO ×2 (08:06→08:11)
[2017-07-01] MEDS: GABAPENTIN 100 MG CAP PO ×2 (08:06→20:46)
[2017-07-01] MEDS: LINAGLIPTIN 5 MG TABLET PO (08:06)
[2017-07-01] MEDS: METOPROLOL (XL) 25 MG TAB PO ×2 (08:06→20:47)
[2017-07-01] MEDS: FUROSEMIDE 40 MG/4 ML CUP NGT (08:06)
[2017-07-01] MEDS: DOCUSATE SODIUM 100 MG CAP PO ×2 (08:06→20:46)
[2017-07-01] MEDS: ASPIRIN 81 MG TAB PO (08:11)
[2017-07-01] MEDS: INSULIN GLARGINE [LANtus] 3 ML PEN SC ×2 (08:51→20:57)
[2017-07-01] MEDS: AL HYDROX/MG HYDROX/SIMETH 30 ML CUP PO ×2 (15:38→19:56)
[2017-07-01] MEDS: ATORVASTATIN 10 MG TAB PO (20:46)
[2017-07-01] MEDS: AMITRIPTYLINE 25 MG TAB PO (20:47)
[2017-07-02] MEDS: ACCU-CHEK XX (02:00)
[2017-07-02] MEDS: morphine 2 MG INJ IV (04:50)
[2017-07-02] MEDS: PANTOPRAZOLE (EC) 40 MG TAB PO ×2 (05:07→20:47)
[2017-07-02] MEDS: INSULIN ASPART [NOVOLOG] 3 ML PEN SC ×7 (07:55→20:36)
[2017-07-02] MEDS ORDERED: ALBUMIN HUMAN 25% 50 ML IV (08:30)
[2017-07-02] MEDS ORDERED: SODIUM CHLORIDE 0.9% 1L BAG IV (08:30)
[2017-07-02] MEDS: METOPROLOL (XL) 25 MG TAB PO ×2 (08:32→21:06)
[2017-07-02] MEDS: LISINOPRIL 10 MG TAB PO ×2 (08:33→21:07)
[2017-07-02 08:36] LABS: ANION GAP 12 (8-16); BLOOD UREA NITROGEN 42 mg/dl (7-20); CALCIUM 9.5 mg/dl (8.4-10.2); CARBON DIOXIDE 33 mmol/L (21-31); CHLORIDE 101 mmol/L (97-110); CREATININE 3.48 mg/dl (0.61-1.24); SODIUM 141 mmol/L (135-144)
[2017-07-02] MEDS: ASPIRIN 81 MG TAB PO (08:42)
[2017-07-02] MEDS: ASPIRIN (EC) 81 MG TAB PO (08:42)
[2017-07-02] MEDS: ALLOPURINOL 100 MG TAB PO ×2 (08:42)
[2017-07-02] MEDS: GABAPENTIN 100 MG CAP PO ×2 (08:42→20:35)
[2017-07-02] MEDS: DOCUSATE SODIUM 100 MG CAP PO ×2 (08:42→20:34)
[2017-07-02] MEDS: LINAGLIPTIN 5 MG TABLET PO (08:42)
[2017-07-02 08:43] LABS: GLUCOSE 48 mg/dl (70-220)
[2017-07-02] MEDS: FUROSEMIDE 40 MG/4 ML CUP NGT (08:43)
[2017-07-02] MEDS: GLUCOSE GEL 15 GRAM TUBE PO (08:51)
[2017-07-02] MEDS: DEXTROSE 50% 50 ML SYRINGE IV (09:59)
[2017-07-02] MEDS: HEPARIN 1000 UNITS/ML 10 ML INJ CATHETER (14:37)
[2017-07-02] MEDS: AMITRIPTYLINE 25 MG TAB PO (20:34)
[2017-07-02] MEDS: ATORVASTATIN 10 MG TAB PO (20:35)
[2017-07-02] MEDS: INSULIN GLARGINE [LANtus] 3 ML PEN SC (20:46)
[2017-07-03] MEDS: ACCU-CHEK XX (02:00)
[2017-07-03] MEDS ORDERED: PANTOPRAZOLE (EC) 40 MG TAB PO (06:00)
[2017-07-03 07:47] LABS: ADD MAN DIFF? NO
[2017-07-03 07:51] LABS: BASOPHIL # 0.1 10^3/ul (0.0-0.1); BASOPHILS % 0.8 % (0.0-2.0); EOSINOPHILS # 0.5 10^3/ul (0.0-0.5); EOSINOPHILS % 4.8 % (0.0-7.0); HEMATOCRIT 39.5 % (42.0-52.0); HEMOGLOBIN 12.5 g/dl (14.0-18.0); LYMPHOCYTES # 1.4 10^3/ul (0.8-2.9); LYMPHOCYTES % 13.2 % (15.0-51.0); MEAN CORPUSCULAR HEMOGLOBIN 29.5 pg (29.0-33.0); MEAN CORPUSCULAR HGB CONC 31.6 g/dl (32.0-37.0); MEAN CORPUSCULAR VOLUME 93.2 fl (82.0-101.0); MEAN PLATELET VOLUME 12.2 fl (7.4-10.4); MONOCYTE # 0.7 10^3/ul (0.3-0.9); MONOCYTES % 6.8 % (0.0-11.0); NEUTROPHIL # 7.7 10^3/ul (1.6-7.5); PLATELET COUNT 355 10^3/UL (140-415); RED BLOOD COUNT 4.24 10^6/ul (4.70-6.10); RED CELL DISTRIBUTION WIDTH 15.6 % (11.5-14.5)
[2017-07-03 07:51] LABS: WHITE BLOOD COUNT 10.5 10^3/ul (4.8-10.8)
[2017-07-03 08:19] LABS: ANION GAP 9 (8-16); BLOOD UREA NITROGEN 39 mg/dl (7-20); CALCIUM 9.3 mg/dl (8.4-10.2); CARBON DIOXIDE 28 mmol/L (21-31); CHLORIDE 105 mmol/L (97-110); CREATININE 3.39 mg/dl (0.61-1.24); SODIUM 136 mmol/L (135-144)
[2017-07-03 08:31] LABS: PHOSPHORUS 3.5 mg/dl (2.5-4.9)
[2017-07-03] MEDS: FUROSEMIDE 40 MG/4 ML CUP NGT (08:31)
[2017-07-03] MEDS: ALLOPURINOL 100 MG TAB PO ×2 (08:31→09:00)
[2017-07-03] MEDS: ASPIRIN 81 MG TAB PO (08:31)
[2017-07-03] MEDS: DOCUSATE SODIUM 100 MG CAP PO ×2 (08:32→21:08)
[2017-07-03] MEDS: LISINOPRIL 10 MG TAB PO ×2 (08:32→21:00)
[2017-07-03] MEDS: PANTOPRAZOLE (EC) 40 MG TAB PO ×2 (08:32→21:09)
[2017-07-03] MEDS: GABAPENTIN 100 MG CAP PO ×2 (08:32→21:09)
[2017-07-03] MEDS: METOPROLOL (XL) 25 MG TAB PO ×2 (08:33→21:00)
[2017-07-03] MEDS: ASPIRIN (EC) 81 MG TAB PO (08:33)
[2017-07-03 08:35] LABS: GLUCOSE 414 mg/dl (70-220)
[2017-07-03] MEDS: INSULIN ASPART [NOVOLOG] 3 ML PEN SC ×5 (08:37→17:38)
[2017-07-03] MEDS: LINAGLIPTIN 5 MG TABLET PO (08:41)
[2017-07-03] MEDS: INSULIN GLARGINE [LANtus] 3 ML PEN SC ×2 (08:43→21:30)
[2017-07-03 15:20] LABS: POTASSIUM 5.1 mmol/L (3.5-5.1)
[2017-07-03] MEDS ORDERED: INSULIN ASPART [NOVOLOG] 3 ML PEN SC (17:00)
[2017-07-03] MEDS: Insulin NOVOLOG SS MILD Algorithm (NPO/TPN/ENTERAL FEEDS) SC ×2 (17:34→21:31)
[2017-07-03] MEDS: AMITRIPTYLINE 25 MG TAB PO (21:08)
[2017-07-03] MEDS: ATORVASTATIN 10 MG TAB PO (21:08)
[2017-07-04] MEDS: Insulin NOVOLOG SS MILD Algorithm (NPO/TPN/ENTERAL FEEDS) SC ×4 (01:00→12:35)
[2017-07-04 07:33] LABS: ADD MAN DIFF? NO
[2017-07-04 07:38] LABS: BASOPHIL # 0.1 10^3/ul (0.0-0.1); BASOPHILS % 1.1 % (0.0-2.0); EOSINOPHILS # 0.5 10^3/ul (0.0-0.5); EOSINOPHILS % 5.4 % (0.0-7.0); HEMATOCRIT 43.1 % (42.0-52.0); HEMOGLOBIN 13.6 g/dl (14.0-18.0); LYMPHOCYTES # 1.6 10^3/ul (0.8-2.9); LYMPHOCYTES % 17.1 % (15.0-51.0); MEAN CORPUSCULAR HEMOGLOBIN 29.4 pg (29.0-33.0); MEAN CORPUSCULAR HGB CONC 31.6 g/dl (32.0-37.0); MEAN CORPUSCULAR VOLUME 93.1 fl (82.0-101.0); MEAN PLATELET VOLUME 11.7 fl (7.4-10.4); MONOCYTE # 0.8 10^3/ul (0.3-0.9); MONOCYTES % 8.2 % (0.0-11.0); NEUTROPHIL # 6.3 10^3/ul (1.6-7.5); NEUTROPHILS % 67.3 % (39.0-77.0); PLATELET COUNT 362 10^3/UL (140-415); RED BLOOD COUNT 4.63 10^6/ul (4.70-6.10); RED CELL DISTRIBUTION WIDTH 15.7 % (11.5-14.5)
[2017-07-04 07:38] LABS: WHITE BLOOD COUNT 9.3 10^3/ul (4.8-10.8)
[2017-07-04 08:03] LABS: ANION GAP 11 (8-16); BLOOD UREA NITROGEN 52 mg/dl (7-20); CALCIUM 9.7 mg/dl (8.4-10.2); CARBON DIOXIDE 24 mmol/L (21-31); CHLORIDE 108 mmol/L (97-110); CREATININE 3.68 mg/dl (0.61-1.24); GLUCOSE 146 mg/dl (70-220); POTASSIUM 4.4 mmol/L (3.5-5.1); SODIUM 139 mmol/L (135-144)
[2017-07-04 08:06] LABS: PHOSPHORUS 4.2 mg/dl (2.5-4.9)
[2017-07-04 08:06] LABS: MAGNESIUM 2.1 mg/dl (1.7-2.5)
[2017-07-04] MEDS: GABAPENTIN 100 MG CAP PO ×2 (08:16→20:50)
[2017-07-04] MEDS: FUROSEMIDE 40 MG/4 ML CUP NGT (08:16)
[2017-07-04] MEDS: PANTOPRAZOLE (EC) 40 MG TAB PO ×2 (08:17→20:50)
[2017-07-04] MEDS: ALLOPURINOL 100 MG TAB PO ×2 (08:17→08:21)
[2017-07-04] MEDS: ASPIRIN (EC) 81 MG TAB PO (08:17)
[2017-07-04] MEDS: ASPIRIN 81 MG TAB PO (08:17)
[2017-07-04] MEDS: DOCUSATE SODIUM 100 MG CAP PO ×2 (08:17→20:49)
[2017-07-04] MEDS: LISINOPRIL 10 MG TAB PO ×2 (08:18→20:50)
[2017-07-04] MEDS: METOPROLOL (XL) 25 MG TAB PO ×2 (08:18→20:50)
[2017-07-04] MEDS: LINAGLIPTIN 5 MG TABLET PO (08:20)
[2017-07-04] MEDS: INSULIN ASPART [NOVOLOG] 3 ML PEN SC ×3 (08:20→17:35)
[2017-07-04] MEDS: INSULIN GLARGINE [LANtus] 3 ML PEN SC ×2 (08:21→21:06)
[2017-07-04] MEDS ORDERED: ALBUMIN HUMAN 25% 50 ML IV (12:30)
[2017-07-04] MEDS ORDERED: SODIUM CHLORIDE 0.9% 1L BAG IV (12:30)
[2017-07-04] MEDS: HEPARIN 1000 UNITS/ML 10 ML INJ CATHETER (17:50)
[2017-07-04] MEDS: AMITRIPTYLINE 25 MG TAB PO (20:49)
[2017-07-04] MEDS: ATORVASTATIN 10 MG TAB PO (20:49)
[2017-07-04] MEDS: morphine 2 MG INJ IV (23:10)
[2017-07-05] MEDS: DOCUSATE SODIUM 100 MG CAP PO (08:05)
[2017-07-05] MEDS: GABAPENTIN 100 MG CAP PO (08:05)
[2017-07-05] MEDS: ALLOPURINOL 100 MG TAB PO (08:06)
[2017-07-05] MEDS: PANTOPRAZOLE (EC) 40 MG TAB PO (08:06)
[2017-07-05] MEDS: METOPROLOL (XL) 25 MG TAB PO (08:06)
[2017-07-05] MEDS: LISINOPRIL 10 MG TAB PO (08:07)
[2017-07-05] MEDS: ASPIRIN (EC) 81 MG TAB PO (08:07)
[2017-07-05] MEDS: FUROSEMIDE 40 MG/4 ML CUP NGT (08:08)
[2017-07-05] MEDS: INSULIN ASPART [NOVOLOG] 3 ML PEN SC (08:09)
[2017-07-05] MEDS: INSULIN GLARGINE [LANtus] 3 ML PEN SC (08:11)
== END 2017-07-05 11:35 | disposition home or self-care (01) | DRG 280 ==
LOC: E/R 16:59 → TEL 19:10
PROVIDERS: Internal Medicine Nephrology
PROC: 02PYX3Z Removal of Infusion Device from Great Vessel, External Approach (ICD-10-PCS; principal; 2017-06-28 09:05)
PROC: 4A023N7 Measurement of Cardiac Sampling and Pressure, Left Heart, Percutaneous Approach (ICD-10-PCS; 2017-06-28 09:05)
PROC: B211YZZ Fluoroscopy of Multiple Coronary Arteries using Other Contrast (ICD-10-PCS; 2017-06-28 09:05)
PROC: 5A1D70Z Performance of Urinary Filtration, Intermittent, Less than 6 Hours Per Day (ICD-10-PCS; 2017-06-28 09:05)
PROC: 0JH60XZ Insertion of Tunneled Vascular Access Device into Chest Subcutaneous Tissue and Fascia, Open Approach (ICD-10-PCS; 2017-06-28 09:05)
PROC: 02HV33Z Insertion of Infusion Device into Superior Vena Cava, Percutaneous Approach (ICD-10-PCS; 2017-06-28 09:05)
PROC: 02HV33Z Insertion of Infusion Device into Superior Vena Cava, Percutaneous Approach (ICD-10-PCS; 2017-06-28 09:05)
DX: I13.2 Hypertensive heart and chronic kidney disease with heart failure and with stage 5 chronic kidney disease, or end stage renal disease (principal); J18.9 Pneumonia, unspecified organism; I21.A1 Myocardial infarction type 2; I50.23 Acute on chronic systolic (congestive) heart failure; N18.5 Chronic kidney disease, stage 5; N17.9 Acute kidney failure, unspecified; E11.22 Type 2 diabetes mellitus with diabetic chronic kidney disease; E11.649 Type 2 diabetes mellitus with hypoglycemia without coma; E78.5 Hyperlipidemia, unspecified; D63.1 Anemia in chronic kidney disease; R60.1 Generalized edema; M10.9 Gout, unspecified; R00.0 Tachycardia, unspecified; I42.9 Cardiomyopathy, unspecified; I25.10 Atherosclerotic heart disease of native coronary artery without angina pectoris; K76.0 Fatty (change of) liver, not elsewhere classified; E11.65 Type 2 diabetes mellitus with hyperglycemia; E87.5 Hyperkalemia
CPT/HCPCS: 36415; 71045; 71046; 76700; 80048; 80053; 80061; 81001; 81003; 82550; 82553; 82570; 82947; 82962; 83036; 83735; 83880; 83970; 84100; 84132; 84484; 85025; 85049; 85610; 85670; 85730; 86704; 86709; 86803; 87340; 88300; 90935; 93005; 93306; 93458; 96374; 99285-25

== ENCOUNTER 2017-07-19 14:08 | Outpatient (CLI) | payer OTHER | END 2017-07-19 15:48 | disposition home or self-care (01) | LOC: DCC 14:08 | DX: I50.9 Heart failure, unspecified (principal); I12.0 Hypertensive chronic kidney disease with stage 5 chronic kidney disease or end stage renal disease; N18.6 End stage renal disease; Z99.2 Dependence on renal dialysis; E11.8 Type 2 diabetes mellitus with unspecified complications; Z79.82 Long term (current) use of aspirin; Z79.4 Long term (current) use of insulin | CPT/HCPCS: 82962 ==

== ENCOUNTER 2017-08-02 13:59 | Outpatient (CLI) | payer OTHER | END 2017-08-02 14:50 | disposition home or self-care (01) | LOC: DCC 13:59 | DX: E11.8 Type 2 diabetes mellitus with unspecified complications (principal); I12.0 Hypertensive chronic kidney disease with stage 5 chronic kidney disease or end stage renal disease; N18.6 End stage renal disease; Z99.2 Dependence on renal dialysis; I50.9 Heart failure, unspecified; Z79.4 Long term (current) use of insulin; Z79.82 Long term (current) use of aspirin | CPT/HCPCS: G0463 ==

== ENCOUNTER 2017-08-20 16:33 | Inpatient (IN) | payer MEDICAID, OTHER ==
[2017-08-20 17:39] LABS: ADD MAN DIFF? NO
[2017-08-20 17:42] LABS: BASOPHIL # 0.1 10^3/ul (0.0-0.1); BASOPHILS % 0.5 % (0.0-2.0); EOSINOPHILS # 0.2 10^3/ul (0.0-0.5); EOSINOPHILS % 1.7 % (0.0-7.0); HEMATOCRIT 29.1 % (42.0-52.0); HEMOGLOBIN 9.5 g/dl (14.0-18.0); LYMPHOCYTES # 0.9 10^3/ul (0.8-2.9); LYMPHOCYTES % 8.7 % (15.0-51.0); MEAN CORPUSCULAR HEMOGLOBIN 29.6 pg (29.0-33.0); MEAN CORPUSCULAR HGB CONC 32.6 g/dl (32.0-37.0); MEAN CORPUSCULAR VOLUME 90.7 fl (82.0-101.0); MONOCYTE # 1.2 10^3/ul (0.3-0.9); MONOCYTES % 11.4 % (0.0-11.0); NEUTROPHIL # 8.3 10^3/ul (1.6-7.5); NEUTROPHILS % 76.8 % (39.0-77.0); PLATELET COUNT 340 10^3/UL (140-415); RED BLOOD COUNT 3.21 10^6/ul (4.70-6.10); RED CELL DISTRIBUTION WIDTH 14.3 % (11.5-14.5)
[2017-08-20 17:42] LABS: WHITE BLOOD COUNT 10.8 10^3/ul (4.8-10.8)
[2017-08-20 18:10] LABS: ANION GAP 17 (8-16); BLOOD UREA NITROGEN 95 mg/dl (7-20); CALCIUM 8.8 mg/dl (8.4-10.2); CARBON DIOXIDE 22 mmol/L (21-31); CHLORIDE 102 mmol/L (97-110); CREATININE 9.21 mg/dl (0.61-1.24); GLUCOSE 104 mg/dl (70-220); MAGNESIUM 2.2 mg/dl (1.7-2.5); PHOSPHORUS 9.1 mg/dl (2.5-4.9); POTASSIUM 4.2 mmol/L (3.5-5.1); SODIUM 137 mmol/L (135-144)
[2017-08-20] MEDS ORDERED: ACETAMINOPHEN 325 MG TAB PO (23:30)
[2017-08-20] MEDS ORDERED: ONDANSETRON 4 MG INJ IV (23:30)
[2017-08-20] MEDS ORDERED: GLUCAGON 1 MG INJ IM (23:45)
[2017-08-20] MEDS ORDERED: GLUCOSE GEL 15 GRAM TUBE BUCCAL (23:45)
[2017-08-20] MEDS ORDERED: DEXTROSE 50% 50 ML SYRINGE IV ×2 (23:45)
[2017-08-20] MEDS ORDERED: GLUCOSE GEL 15 GRAM TUBE PO ×2 (23:45)
[2017-08-21] MEDS: AMITRIPTYLINE 25 MG TAB PO ×2 (01:26→21:05)
[2017-08-21] MEDS: ACCU-CHEK XX (01:29)
[2017-08-21] MEDS: traMADol 50 MG TAB PO ×3 (02:34→19:28)
[2017-08-21 05:43] LABS: ADD MAN DIFF? NO
[2017-08-21 05:45] LABS: WHITE BLOOD COUNT 9.4 10^3/ul (4.8-10.8)
[2017-08-21 05:45] LABS: BASOPHIL # 0.1 10^3/ul (0.0-0.1); BASOPHILS % 0.5 % (0.0-2.0); EOSINOPHILS # 0.5 10^3/ul (0.0-0.5); EOSINOPHILS % 4.8 % (0.0-7.0); HEMATOCRIT 27.8 % (42.0-52.0); HEMOGLOBIN 9.1 g/dl (14.0-18.0); LYMPHOCYTES # 1.4 10^3/ul (0.8-2.9); LYMPHOCYTES % 14.6 % (15.0-51.0); MEAN CORPUSCULAR HEMOGLOBIN 29.8 pg (29.0-33.0); MEAN CORPUSCULAR HGB CONC 32.7 g/dl (32.0-37.0); MEAN CORPUSCULAR VOLUME 91.1 fl (82.0-101.0); MEAN PLATELET VOLUME 11.9 fl (7.4-10.4); MONOCYTE # 1.1 10^3/ul (0.3-0.9); MONOCYTES % 11.3 % (0.0-11.0); NEUTROPHIL # 6.4 10^3/ul (1.6-7.5); NEUTROPHILS % 68.3 % (39.0-77.0); PLATELET COUNT 339 10^3/UL (140-415); RED BLOOD COUNT 3.05 10^6/ul (4.70-6.10); RED CELL DISTRIBUTION WIDTH 14.3 % (11.5-14.5)
[2017-08-21 06:13] LABS: PHOSPHORUS 7.1 mg/dl (2.5-4.9)
[2017-08-21 06:13] LABS: MAGNESIUM 2.2 mg/dl (1.7-2.5)
[2017-08-21 06:36] LABS: ALANINE AMINOTRANSFERASE 32 IU/L (13-69); ALBUMIN/GLOBULIN RATIO 0.93; ALKALINE PHOSPHATASE 166 IU/L (42-121); ANION GAP 14 (8-16); ASPARTATE AMINO TRANSFERASE 21 IU/L (15-46); BILIRUBIN,INDIRECT 1.9 mg/dl (0-1.1); BILIRUBIN,TOTAL 1.9 mg/dl (0.2-1.3); BLOOD UREA NITROGEN 89 mg/dl (7-20); CALCIUM 8.6 mg/dl (8.4-10.2); CARBON DIOXIDE 20 mmol/L (21-31); CHLORIDE 106 mmol/L (97-110); CREATININE 8.23 mg/dl (0.61-1.24); GLUCOSE 310 mg/dl (70-220); POTASSIUM 4.3 mmol/L (3.5-5.1); SODIUM 136 mmol/L (135-144); TOTAL PROTEIN 6.2 g/dl (6.1-8.1)
[2017-08-21 07:58] LABS: HEMOGLOBIN A1C 11.7 % (0-5.9)
[2017-08-21] MEDS: HEPARIN 5,000 UNIT/0.5 ML VIAL SC ×2 (08:30→21:11)
[2017-08-21] MEDS: INSULIN ASPART [NOVOLOG] 3 ML PEN SC ×8 (08:32→21:14)
[2017-08-21] MEDS: GABAPENTIN 100 MG CAP PO ×2 (12:45→21:05)
[2017-08-21] MEDS ORDERED: morphine 2 MG INJ IV ×2 (13:00)
[2017-08-21] MEDS: LINAGLIPTIN 5 MG TABLET PO (14:00)
[2017-08-21] MEDS ORDERED: morphine LIQ (10 MG/5 ML) CUP PO ×2 (15:00)
[2017-08-21 15:24] LABS: HEPATITIS B SURFACE ANTIGEN NEGATIVE (NEGATIVE)
[2017-08-21 15:42] LABS: HEPATITIS B SURFACE ANTIBODY POSITIVE (NEGATIVE)
[2017-08-21] MEDS: SEVELAMER CARBONATE 800 MG TABLET PO (17:28)
[2017-08-21] MEDS ORDERED: INSULIN ASPART [NOVOLOG] 3 ML PEN SC (18:00)
[2017-08-21] MEDS: HEPARIN 1000 UNITS/ML 10 ML INJ CATHETER (18:09)
[2017-08-21] MEDS ORDERED: INSULIN GLARGINE [LANtus] 3 ML PEN SC (21:00)
[2017-08-21] MEDS: ATORVASTATIN 10 MG TAB PO (21:05)
[2017-08-21] MEDS: LISINOPRIL 10 MG TAB PO (21:07)
[2017-08-21] MEDS: METOPROLOL (XL) 25 MG TAB PO (21:07)
[2017-08-21] MEDS: INSULIN GLARGINE [LANtus] 3 ML PEN SC (21:12)
[2017-08-22] MEDS: ACCU-CHEK XX (02:00)
[2017-08-22] MEDS: INSULIN ASPART [NOVOLOG] 3 ML PEN SC ×5 (02:29→12:07)
[2017-08-22] MEDS: traMADol 50 MG TAB PO (05:17)
[2017-08-22] MEDS: PANTOPRAZOLE (EC) 40 MG TAB PO (05:17)
[2017-08-22 06:18] LABS: ADD MAN DIFF? NO
[2017-08-22 06:23] LABS: WHITE BLOOD COUNT 10.2 10^3/ul (4.8-10.8)
[2017-08-22 06:23] LABS: BASOPHIL # 0.1 10^3/ul (0.0-0.1); BASOPHILS % 0.7 % (0.0-2.0); EOSINOPHILS # 0.5 10^3/ul (0.0-0.5); EOSINOPHILS % 5.2 % (0.0-7.0); HEMOGLOBIN 9.4 g/dl (14.0-18.0); LYMPHOCYTES # 1.7 10^3/ul (0.8-2.9); MEAN CORPUSCULAR HEMOGLOBIN 30.2 pg (29.0-33.0); MEAN CORPUSCULAR HGB CONC 33.6 g/dl (32.0-37.0); MEAN PLATELET VOLUME 12.3 fl (7.4-10.4); MONOCYTE # 1.1 10^3/ul (0.3-0.9); NEUTROPHIL # 6.6 10^3/ul (1.6-7.5); NEUTROPHILS % 65.3 % (39.0-77.0); PLATELET COUNT 369 10^3/UL (140-415); RED BLOOD COUNT 3.11 10^6/ul (4.70-6.10); RED CELL DISTRIBUTION WIDTH 14.3 % (11.5-14.5)
[2017-08-22 07:10] LABS: ANION GAP 11 (8-16); BLOOD UREA NITROGEN 50 mg/dl (7-20); CALCIUM 9.3 mg/dl (8.4-10.2); CARBON DIOXIDE 29 mmol/L (21-31); CHLORIDE 100 mmol/L (97-110); CREATININE 5.04 mg/dl (0.61-1.24); GLUCOSE 104 mg/dl (70-220); POTASSIUM 3.9 mmol/L (3.5-5.1); SODIUM 136 mmol/L (135-144)
[2017-08-22] MEDS: METOPROLOL (XL) 25 MG TAB PO (08:45)
[2017-08-22] MEDS: LISINOPRIL 10 MG TAB PO (08:46)
[2017-08-22] MEDS: GABAPENTIN 100 MG CAP PO ×2 (09:07→12:18)
[2017-08-22] MEDS: ALLOPURINOL 100 MG TAB PO (09:07)
[2017-08-22] MEDS: SEVELAMER CARBONATE 800 MG TABLET PO ×2 (09:07→12:19)
[2017-08-22] MEDS: HEPARIN 5,000 UNIT/0.5 ML VIAL SC (09:08)
[2017-08-22] MEDS: ASPIRIN (EC) 81 MG TAB PO (09:08)
[2017-08-22] MEDS: CYCLOBENZAPRINE 10 MG TAB PO (15:43)
== END 2017-08-22 17:25 | disposition home or self-care (01) | DRG 291 ==
LOC: E/R 16:33 → MS2 21:38
DX: I13.2 Hypertensive heart and chronic kidney disease with heart failure and with stage 5 chronic kidney disease, or end stage renal disease (principal); N18.6 End stage renal disease; I50.20 Unspecified systolic (congestive) heart failure; E10.22 Type 1 diabetes mellitus with diabetic chronic kidney disease; I42.9 Cardiomyopathy, unspecified; M54.2 Cervicalgia; D64.9 Anemia, unspecified; E10.65 Type 1 diabetes mellitus with hyperglycemia; Z91.15 Patient's noncompliance with renal dialysis; Z87.891 Personal history of nicotine dependence; Z99.2 Dependence on renal dialysis; Z79.82 Long term (current) use of aspirin; Z83.3 Family history of diabetes mellitus
CPT/HCPCS: 36415; 71045; 73030; 80048; 80053; 82962; 83036; 83735; 84100; 85025; 86706; 87340; 90935; 93005; 99285-25

== ENCOUNTER 2017-09-05 22:31 | Inpatient (IN) | payer OTHER ==
[2017-09-06 00:58] LABS: ADD MAN DIFF? NO
[2017-09-06 01:02] LABS: WHITE BLOOD COUNT 22.3 10^3/ul (4.8-10.8)
[2017-09-06 01:02] LABS: BASOPHIL # 0.1 10^3/ul (0.0-0.1); BASOPHILS % 0.3 % (0.0-2.0); HEMATOCRIT 22.3 % (42.0-52.0); HEMOGLOBIN 7.2 g/dl (14.0-18.0); LYMPHOCYTES # 1.3 10^3/ul (0.8-2.9); LYMPHOCYTES % 5.7 % (15.0-51.0); MEAN CORPUSCULAR HGB CONC 32.3 g/dl (32.0-37.0); MEAN CORPUSCULAR VOLUME 92.9 fl (82.0-101.0); MEAN PLATELET VOLUME 12.5 fl (7.4-10.4); MONOCYTE # 1.1 10^3/ul (0.3-0.9); MONOCYTES % 4.9 % (0.0-11.0); NEUTROPHIL # 19.5 10^3/ul (1.6-7.5); NEUTROPHILS % 87.6 % (39.0-77.0); PLATELET COUNT 404 10^3/UL (140-415); RED CELL DISTRIBUTION WIDTH 13.8 % (11.5-14.5)
[2017-09-06 01:27] LABS: ALANINE AMINOTRANSFERASE 66 IU/L (13-69); ALBUMIN 2.8 g/dl (3.3-4.9); ALBUMIN/GLOBULIN RATIO 0.87; ALKALINE PHOSPHATASE 544 IU/L (42-121); ANION GAP 21 (8-16); ASPARTATE AMINO TRANSFERASE 64 IU/L (15-46); BILIRUBIN,INDIRECT 0.8 mg/dl (0-1.1); BILIRUBIN,TOTAL 0.8 mg/dl (0.2-1.3); BLOOD UREA NITROGEN 57 mg/dl (7-20); CALCIUM 8.2 mg/dl (8.4-10.2); CARBON DIOXIDE 22 mmol/L (21-31); CHLORIDE 92 mmol/L (97-110); CHOL/HDL RATIO 5.7 RATIO; CHOLESTEROL 109 mg/dl (100-200); CREATINE KINASE 33 IU/L (23-200); GLUCOSE 377 mg/dl (70-220); HDL CHOLESTEROL 19 mg/dl (27-67); LDL CHOLESTEROL,CALCULATED 71 mg/dl; MAGNESIUM 1.7 mg/dl (1.7-2.5); PHOSPHORUS 6.6 mg/dl (2.5-4.9); POTASSIUM 4.7 mmol/L (3.5-5.1); SODIUM 130 mmol/L (135-144); TRIGLYCERIDES 94 mg/dl (0-149)
[2017-09-06 01:39] LABS: CK INDEX 4.4; CK-MB 1.46 ng/ml (0.0-2.4)
[2017-09-06 01:51] LABS: TROPONIN-I 0.594 ng/ml (0.000-0.120)
[2017-09-06] MEDS: ACCUCHECK AT 2AM (Patients on SS coverage) XX (02:04)
[2017-09-06 02:58] LABS: HEMOGLOBIN A1C 9.5 % (0-5.9)
[2017-09-06 03:35] LABS: IMMEDIATE SPIN CROSSMATCH 1 2
[2017-09-06] MEDS ORDERED: DEXTROSE 50% 50 ML SYRINGE IV ×3 (05:00)
[2017-09-06] MEDS ORDERED: traMADol 50 MG TAB PO (05:00)
[2017-09-06] MEDS ORDERED: GLUCOSE GEL 15 GRAM TUBE BUCCAL ×2 (05:00)
[2017-09-06] MEDS ORDERED: VANCOMYCIN IV PER PHARMACY XX (05:00)
[2017-09-06] MEDS ORDERED: GLUCOSE GEL 15 GRAM TUBE PO ×4 (05:00)
[2017-09-06] MEDS ORDERED: GLUCAGON 1 MG INJ IM ×2 (05:00)
[2017-09-06] MEDS: PIPER-TAZO 2.25 GM (PMX) 50 ML IVPB ×3 (05:51→22:48)
[2017-09-06] MEDS: INSULIN ASPART [NOVOLOG] 3 ML PEN SC ×7 (07:56→21:00)
[2017-09-06] MEDS: INSULIN GLARGINE [LANtus] 3 ML PEN SC (07:58)
[2017-09-06] MEDS: VANCOMYCIN 1.5 GM in SOD CHLORIDE 0.9% 250 ML IVPB (08:01)
[2017-09-06] MEDS: ALLOPURINOL 100 MG TAB PO (08:26)
[2017-09-06] MEDS: GABAPENTIN 100 MG CAP PO ×2 (08:26→21:48)
[2017-09-06] MEDS: LISINOPRIL 10 MG TAB PO ×2 (08:26→21:50)
[2017-09-06] MEDS: METOPROLOL (XL) 25 MG TAB PO ×2 (08:27→21:47)
[2017-09-06 09:17] LABS: CREATINE KINASE 29 IU/L (23-200)
[2017-09-06 09:25] LABS: CK INDEX 6.5; CK-MB 1.88 ng/ml (0.0-2.4)
[2017-09-06 09:33] LABS: TROPONIN-I 0.435 ng/ml (0.000-0.120)
[2017-09-06 11:13] LABS: HEMATOCRIT 27.5 % (42.0-52.0)
[2017-09-06 15:33] LABS: ADD UMIC YES; UR AMORPHOUS CRYSTAL FEW /HPF (NONE SEEN); UR ASCORBIC ACID NEGATIVE (NEGATIVE); UR BACTERIA FEW /HPF (NONE SEEN); UR BILIRUBIN (Dip) NEGATIVE (NEGATIVE); UR BLOOD (Dip) NEGATIVE (NEGATIVE); UR CLARITY SLIGHTLY CLOUDY (CLEAR); UR COLOR YELLOW (YELLOW); UR GLUCOSE (Dip) 3+ mg/dL (NEGATIVE); UR KETONES (Dip) NEGATIVE (NEGATIVE); UR LEUKOCYTE ESTERASE (Dip) NEGATIVE Leu/ul (NEGATIVE); UR NITRITE (Dip) NEGATIVE (NEGATIVE); UR RBC 1 /HPF (0-5); UR SPECIFIC GRAVITY (Dip) 1.013 (1.003-1.030); UR TOTAL PROTEIN (Dip) 3+ mg/dl (NEGATIVE); UR UROBILINOGEN (Dip) 1+ mg/dL (NEGATIVE); UR WBC 4 /HPF (0-5)
[2017-09-06] MEDS: SEVELAMER CARBONATE 800 MG TABLET PO (17:17)
[2017-09-06] MEDS: ATORVASTATIN 10 MG TAB PO (21:46)
[2017-09-06] MEDS: AMITRIPTYLINE 25 MG TAB PO (21:48)
[2017-09-06] MEDS: traMADol 50 MG TAB PO (22:47)
[2017-09-07] MEDS: ACCUCHECK AT 2AM (Patients on SS coverage) XX (02:00)
[2017-09-07] MEDS: PIPER-TAZO 2.25 GM (PMX) 50 ML IVPB ×3 (06:50→21:25)
[2017-09-07] MEDS: INSULIN ASPART [NOVOLOG] 3 ML PEN SC ×7 (07:48→21:00)
[2017-09-07] MEDS: INSULIN GLARGINE [LANtus] 3 ML PEN SC (07:49)
[2017-09-07] MEDS: SEVELAMER CARBONATE 800 MG TABLET PO ×3 (07:53→17:31)
[2017-09-07 08:52] LABS: ADD MAN DIFF? NO
[2017-09-07] MEDS: GABAPENTIN 100 MG CAP PO ×2 (08:53→21:24)
[2017-09-07] MEDS: ALLOPURINOL 100 MG TAB PO (08:53)
[2017-09-07] MEDS: METOPROLOL (XL) 25 MG TAB PO ×2 (09:00→21:00)
[2017-09-07] MEDS: LISINOPRIL 10 MG TAB PO ×2 (09:00→21:24)
[2017-09-07 09:06] LABS: ABNORMAL IP MESSAGE 1; BASOPHILS % 0.2 % (0.0-2.0); EOSINOPHILS % 0.1 % (0.0-7.0); HEMATOCRIT 25.2 % (42.0-52.0); HEMOGLOBIN 8.4 g/dl (14.0-18.0); LYMPHOCYTES # 0.8 10^3/ul (0.8-2.9); LYMPHOCYTES % 3.6 % (15.0-51.0); MEAN CORPUSCULAR HEMOGLOBIN 29.6 pg (29.0-33.0); MEAN CORPUSCULAR HGB CONC 33.3 g/dl (32.0-37.0); MEAN CORPUSCULAR VOLUME 88.7 fl (82.0-101.0); MEAN PLATELET VOLUME 12.5 fl (7.4-10.4); MONOCYTE # 1.2 10^3/ul (0.3-0.9); NEUTROPHIL # 20.9 10^3/ul (1.6-7.5); NEUTROPHILS % 90.1 % (39.0-77.0); PLATELET COUNT 506 10^3/UL (140-415); POSITIVE DIFF @See below; RED BLOOD COUNT 2.84 10^6/ul (4.70-6.10); RED CELL DISTRIBUTION WIDTH 14.7 % (11.5-14.5)
[2017-09-07 09:06] LABS: WHITE BLOOD COUNT 23.2 10^3/ul (4.8-10.8)
[2017-09-07 09:17] LABS: IRON 14 ug/dl (35-150)
[2017-09-07 09:24] LABS: ALANINE AMINOTRANSFERASE 44 IU/L (13-69); ALBUMIN 2.7 g/dl (3.3-4.9); ALKALINE PHOSPHATASE 556 IU/L (42-121); ANION GAP 18 (8-16); ASPARTATE AMINO TRANSFERASE 39 IU/L (15-46); BILIRUBIN,INDIRECT 0.4 mg/dl (0-1.1); BILIRUBIN,TOTAL 0.4 mg/dl (0.2-1.3); BLOOD UREA NITROGEN 78 mg/dl (7-20); CALCIUM 8.3 mg/dl (8.4-10.2); CARBON DIOXIDE 22 mmol/L (21-31); CHLORIDE 96 mmol/L (97-110); CREATININE 7.14 mg/dl (0.61-1.24); GLUCOSE 323 mg/dl (70-220); POTASSIUM 4.1 mmol/L (3.5-5.1); SODIUM 132 mmol/L (135-144); TOTAL PROTEIN 5.7 g/dl (6.1-8.1)
[2017-09-07 09:27] LABS: % IRON SATURATION 8 % SAT (22-52); TOTAL IRON BINDING CAPACITY 175 ug/dl (241-421)
[2017-09-07] MEDS: HEPARIN 1000 UNITS/ML 10 ML INJ CATHETER (13:43)
[2017-09-07] MEDS: EPOETIN 4000 UNITS/1 ML INJ (ESRD) SC (17:32)
[2017-09-07] MEDS: AMITRIPTYLINE 25 MG TAB PO (21:24)
[2017-09-07] MEDS: ATORVASTATIN 10 MG TAB PO (21:24)
[2017-09-08] MEDS: traMADol 50 MG TAB PO ×2 (00:55→08:39)
[2017-09-08] MEDS: ACCUCHECK AT 2AM (Patients on SS coverage) XX (02:00)
[2017-09-08] MEDS: INSULIN ASPART [NOVOLOG] 3 ML PEN SC ×9 (03:17→20:51)
[2017-09-08] MEDS: SOD CHLORIDE 0.9% 500 ML IV (05:56)
[2017-09-08] MEDS: PANTOPRAZOLE 40 MG INJ IV (06:00)
[2017-09-08 06:19] LABS: ADD MAN DIFF? NO
[2017-09-08 06:36] LABS: ABNORMAL IP MESSAGE 1; BASOPHIL # 0.1 10^3/ul (0.0-0.1); BASOPHILS % 0.3 % (0.0-2.0); EOSINOPHILS % 0.1 % (0.0-7.0); HEMATOCRIT 24.7 % (42.0-52.0); LYMPHOCYTES # 1.1 10^3/ul (0.8-2.9); LYMPHOCYTES % 4.7 % (15.0-51.0); MEAN CORPUSCULAR HEMOGLOBIN 29.3 pg (29.0-33.0); MEAN CORPUSCULAR HGB CONC 32.4 g/dl (32.0-37.0); MEAN CORPUSCULAR VOLUME 90.5 fl (82.0-101.0); MEAN PLATELET VOLUME 12.5 fl (7.4-10.4); MONOCYTE # 1.4 10^3/ul (0.3-0.9); MONOCYTES % 6.2 % (0.0-11.0); NEUTROPHIL # 20.3 10^3/ul (1.6-7.5); NEUTROPHILS % 87.4 % (39.0-77.0); PLATELET COUNT 557 10^3/UL (140-415); POSITIVE DIFF @See below; RED BLOOD COUNT 2.73 10^6/ul (4.70-6.10)
[2017-09-08 06:36] LABS: WHITE BLOOD COUNT 23.2 10^3/ul (4.8-10.8)
[2017-09-08 06:57] LABS: VANCOMYCIN,RANDOM 13.9 ug/ml
[2017-09-08 07:09] LABS: ANION GAP 15 (8-16); BLOOD UREA NITROGEN 54 mg/dl (7-20); CALCIUM 8.2 mg/dl (8.4-10.2); CARBON DIOXIDE 24 mmol/L (21-31); CHLORIDE 98 mmol/L (97-110); CREATININE 5.39 mg/dl (0.61-1.24); POTASSIUM 4.1 mmol/L (3.5-5.1); SODIUM 133 mmol/L (135-144)
[2017-09-08] MEDS: PIPER-TAZO 2.25 GM (PMX) 50 ML IVPB ×3 (07:14→20:55)
[2017-09-08 07:15] LABS: GLUCOSE 463 mg/dl (70-220)
[2017-09-08] MEDS: SEVELAMER CARBONATE 800 MG TABLET PO ×3 (08:07→17:13)
[2017-09-08] MEDS: INSULIN GLARGINE [LANtus] 3 ML PEN SC (08:17)
[2017-09-08] MEDS: GABAPENTIN 100 MG CAP PO ×2 (08:34→20:50)
[2017-09-08] MEDS: LISINOPRIL 10 MG TAB PO (08:35)
[2017-09-08] MEDS: ALLOPURINOL 100 MG TAB PO (08:35)
[2017-09-08] MEDS: METOPROLOL (XL) 25 MG TAB PO (08:35)
[2017-09-08] MEDS: VANCOMYCIN 1 GM 250 ML IVPB (10:24)
[2017-09-08] MEDS ORDERED: INSULIN ASPART [NOVOLOG] 3 ML PEN SC ×2 (11:50)
[2017-09-08] MEDS: AMITRIPTYLINE 25 MG TAB PO (20:50)
[2017-09-08] MEDS: ATORVASTATIN 10 MG TAB PO (20:50)
[2017-09-09] MEDS: ACCUCHECK AT 2AM (Patients on SS coverage) XX (02:00)
[2017-09-09] MEDS: PANTOPRAZOLE 40 MG INJ IV (05:34)
[2017-09-09] MEDS: PIPER-TAZO 2.25 GM (PMX) 50 ML IVPB ×3 (05:34→21:39)
[2017-09-09 06:39] LABS: ADD MAN DIFF? NO
[2017-09-09 06:51] LABS: BASOPHIL # 0.1 10^3/ul (0.0-0.1); BASOPHILS % 0.5 % (0.0-2.0); EOSINOPHILS # 0.2 10^3/ul (0.0-0.5); EOSINOPHILS % 1.2 % (0.0-7.0); HEMATOCRIT 25.1 % (42.0-52.0); MEAN CORPUSCULAR HEMOGLOBIN 29.1 pg (29.0-33.0); MEAN CORPUSCULAR HGB CONC 31.9 g/dl (32.0-37.0); MEAN CORPUSCULAR VOLUME 91.3 fl (82.0-101.0); MEAN PLATELET VOLUME 12.1 fl (7.4-10.4); MONOCYTE # 1.2 10^3/ul (0.3-0.9); NEUTROPHIL # 16.9 10^3/ul (1.6-7.5); NEUTROPHILS % 85.2 % (39.0-77.0); PLATELET COUNT 631 10^3/UL (140-415); RED BLOOD COUNT 2.75 10^6/ul (4.70-6.10); RED CELL DISTRIBUTION WIDTH 15.5 % (11.5-14.5)
[2017-09-09 06:51] LABS: WHITE BLOOD COUNT 19.9 10^3/ul (4.8-10.8)
[2017-09-09 08:00] LABS: ANION GAP 19 (8-16); BLOOD UREA NITROGEN 61 mg/dl (7-20); CALCIUM 8.8 mg/dl (8.4-10.2); CARBON DIOXIDE 23 mmol/L (21-31); CHLORIDE 97 mmol/L (97-110); CREATININE 5.84 mg/dl (0.61-1.24); GLUCOSE 379 mg/dl (70-220); POTASSIUM 5.4 mmol/L (3.5-5.1); SODIUM 134 mmol/L (135-144)
[2017-09-09] MEDS: GABAPENTIN 100 MG CAP PO ×2 (08:39→21:36)
[2017-09-09] MEDS: SEVELAMER CARBONATE 800 MG TABLET PO ×3 (08:39→18:13)
[2017-09-09] MEDS: ALLOPURINOL 100 MG TAB PO (08:39)
[2017-09-09] MEDS: INSULIN ASPART [NOVOLOG] 3 ML PEN SC ×7 (08:45→21:38)
[2017-09-09] MEDS: traMADol 50 MG TAB PO (08:48)
[2017-09-09] MEDS: INSULIN GLARGINE [LANtus] 3 ML PEN SC ×2 (09:06→22:50)
[2017-09-09 10:54] LABS: OCCULT BLOOD STOOL NEGATIVE (NEGATIVE)
[2017-09-09] MEDS ORDERED: ALBUTEROL/IPRATROPIUM (NEB) 3 ML AMP HHN (12:00)
[2017-09-09] MEDS: BISACODYL (EC) 5 MG TAB PO (12:59)
[2017-09-09] MEDS: NA POLYST SULFON 15 GM/60 ML BTL PO (15:43)
[2017-09-09 16:49] LABS: HEPATITIS B SURFACE ANTIGEN NEGATIVE (NEGATIVE)
[2017-09-09] MEDS: MAGNESIUM CITRATE 300 ML BTL PO ×2 (17:30)
[2017-09-09] MEDS: POLYETHYLENE GLYCOL 3350 119 GM POWDER PO (18:14)
[2017-09-09] MEDS: AMITRIPTYLINE 25 MG TAB PO (21:36)
[2017-09-09] MEDS: ATORVASTATIN 10 MG TAB PO (21:36)
[2017-09-10] MEDS: HEPARIN 1000 UNITS/ML 10 ML INJ CATHETER (01:36)
[2017-09-10] MEDS: ACCUCHECK AT 2AM (Patients on SS coverage) XX (02:00)
[2017-09-10] MEDS: traMADol 50 MG TAB PO (02:56)
[2017-09-10] MEDS ORDERED: POLYETHYLENE GLYCOL 3350 119 GM POWDER PO (03:30)
[2017-09-10] MEDS: MAGNESIUM CITRATE 300 ML BTL PO (04:09)
[2017-09-10] MEDS: PIPER-TAZO 2.25 GM (PMX) 50 ML IVPB (05:32)
[2017-09-10] MEDS: PANTOPRAZOLE 40 MG INJ IV (05:32)
[2017-09-10] MEDS: POLYETHYLENE GLYCOL 3350 119 GM POWDER PO (05:33)
[2017-09-10 07:13] LABS: ADD MAN DIFF? NO
[2017-09-10 07:19] LABS: BASOPHIL # 0.1 10^3/ul (0.0-0.1); BASOPHILS % 0.3 % (0.0-2.0); EOSINOPHILS # 0.2 10^3/ul (0.0-0.5); EOSINOPHILS % 1.4 % (0.0-7.0); HEMATOCRIT 26.3 % (42.0-52.0); HEMOGLOBIN 8.3 g/dl (14.0-18.0); LYMPHOCYTES # 1.3 10^3/ul (0.8-2.9); LYMPHOCYTES % 8.5 % (15.0-51.0); MEAN CORPUSCULAR HEMOGLOBIN 28.5 pg (29.0-33.0); MEAN CORPUSCULAR HGB CONC 31.6 g/dl (32.0-37.0); MEAN CORPUSCULAR VOLUME 90.4 fl (82.0-101.0); MEAN PLATELET VOLUME 11.2 fl (7.4-10.4); MONOCYTE # 1.4 10^3/ul (0.3-0.9); MONOCYTES % 8.9 % (0.0-11.0); NEUTROPHIL # 12.2 10^3/ul (1.6-7.5); NEUTROPHILS % 78.8 % (39.0-77.0); RED BLOOD COUNT 2.91 10^6/ul (4.70-6.10); RED CELL DISTRIBUTION WIDTH 15.2 % (11.5-14.5)
[2017-09-10 07:19] LABS: WHITE BLOOD COUNT 15.5 10^3/ul (4.8-10.8)
[2017-09-10 07:25] LABS: PLATELET COUNT 734 10^3/UL (140-415)
[2017-09-10 07:33] LABS: ANION GAP 14 (8-16); BLOOD UREA NITROGEN 38 mg/dl (7-20); CALCIUM 9.1 mg/dl (8.4-10.2); CARBON DIOXIDE 24 mmol/L (21-31); CHLORIDE 102 mmol/L (97-110); GLUCOSE 63 mg/dl (70-220); POTASSIUM 3.4 mmol/L (3.5-5.1); SODIUM 137 mmol/L (135-144)
[2017-09-10] MEDS: INSULIN ASPART [NOVOLOG] 3 ML PEN SC ×7 (07:55→21:00)
[2017-09-10] MEDS: SEVELAMER CARBONATE 800 MG TABLET PO ×3 (07:55→17:55)
[2017-09-10] MEDS: DEXTROSE 50% 50 ML SYRINGE IV (07:58)
[2017-09-10] MEDS: BISACODYL (EC) 5 MG TAB PO (08:00)
[2017-09-10] MEDS: ALLOPURINOL 100 MG TAB PO (09:00)
[2017-09-10] MEDS: GABAPENTIN 100 MG CAP PO ×2 (09:00→21:21)
[2017-09-10] MEDS: DEXTROSE 5%-0.45% NACL 1,000 ML IV ×2 (10:54→21:20)
[2017-09-10] MEDS: morphine 2 MG INJ IV (10:55)
[2017-09-10] MEDS: INSULIN GLARGINE [LANtus] 3 ML PEN SC ×2 (11:19→21:41)
[2017-09-10] MEDS: POTASSIUM CHLORIDE 100 ML IVPB (12:30)
[2017-09-10] MEDS: PROPOFOL 40 ML (14:34)
[2017-09-10] MEDS ORDERED: MEPERIDINE 25 MG INJ IV (15:30)
[2017-09-10] MEDS ORDERED: MIDAZOLAM 1 MG/ML 2 ML INJ IV (15:30)
[2017-09-10] MEDS ORDERED: DIPHENHYDRAMINE 50 MG INJ IV (15:30)
[2017-09-10] MEDS ORDERED: FENTAnyl 50 MCG/ML VIAL IV (15:30)
[2017-09-10] MEDS: EPOETIN 4000 UNITS/1 ML INJ (ESRD) SC (17:53)
[2017-09-10] MEDS: AMITRIPTYLINE 25 MG TAB PO (21:20)
[2017-09-10] MEDS: ATORVASTATIN 10 MG TAB PO (21:21)
[2017-09-11] MEDS: POTASSIUM CHLORIDE 100 ML IVPB ×3 (00:01→02:30)
[2017-09-11] MEDS: morphine 2 MG INJ IV ×2 (00:13→06:27)
[2017-09-11 01:21] LABS: CREATINE KINASE < 20 IU/L (23-200)
[2017-09-11 01:28] LABS: CK-MB 0.49 ng/ml (0.0-2.4); TROPONIN-I 0.114 ng/ml (0.000-0.120)
[2017-09-11] MEDS: ACCUCHECK AT 2AM (Patients on SS coverage) XX (02:23)
[2017-09-11 06:21] LABS: ADD MAN DIFF? NO
[2017-09-11] MEDS ORDERED: NITROGLYCERIN (SL) 0.4 MG TAB SL (06:30)
[2017-09-11 06:33] LABS: WHITE BLOOD COUNT 12.8 10^3/ul (4.8-10.8)
[2017-09-11 06:33] LABS: BASOPHIL # 0.1 10^3/ul (0.0-0.1); BASOPHILS % 0.5 % (0.0-2.0); EOSINOPHILS # 0.1 10^3/ul (0.0-0.5); EOSINOPHILS % 0.9 % (0.0-7.0); HEMATOCRIT 23.6 % (42.0-52.0); HEMOGLOBIN 7.5 g/dl (14.0-18.0); LYMPHOCYTES # 1.2 10^3/ul (0.8-2.9); LYMPHOCYTES % 9.5 % (15.0-51.0); MEAN CORPUSCULAR HEMOGLOBIN 29.1 pg (29.0-33.0); MEAN CORPUSCULAR HGB CONC 31.8 g/dl (32.0-37.0); MEAN CORPUSCULAR VOLUME 91.5 fl (82.0-101.0); MEAN PLATELET VOLUME 11.5 fl (7.4-10.4); MONOCYTE # 1.2 10^3/ul (0.3-0.9); MONOCYTES % 9.5 % (0.0-11.0); NEUTROPHIL # 9.9 10^3/ul (1.6-7.5); NEUTROPHILS % 76.9 % (39.0-77.0); RED BLOOD COUNT 2.58 10^6/ul (4.70-6.10); RED CELL DISTRIBUTION WIDTH 15.4 % (11.5-14.5)
[2017-09-11 06:50] LABS: PLATELET COUNT 753 10^3/UL (140-415)
[2017-09-11 07:03] LABS: CREATINE KINASE < 20 IU/L (23-200)
[2017-09-11 07:06] LABS: CK-MB 0.45 ng/ml (0.0-2.4); TROPONIN-I 0.089 ng/ml (0.000-0.120)
[2017-09-11 07:10] LABS: ANION GAP 13 (8-16); BLOOD UREA NITROGEN 37 mg/dl (7-20); CALCIUM 8.9 mg/dl (8.4-10.2); CARBON DIOXIDE 26 mmol/L (21-31); CHLORIDE 103 mmol/L (97-110); CREATININE 4.76 mg/dl (0.61-1.24); GLUCOSE 196 mg/dl (70-220); POTASSIUM 4.9 mmol/L (3.5-5.1); SODIUM 137 mmol/L (135-144)
[2017-09-11] MEDS ORDERED: POTASSIUM CHLORIDE 100 ML IVPB (08:00)
[2017-09-11] MEDS: INSULIN ASPART [NOVOLOG] 3 ML PEN SC ×7 (08:19→21:02)
[2017-09-11] MEDS: SEVELAMER CARBONATE 800 MG TABLET PO ×3 (08:33→17:57)
[2017-09-11] MEDS: ALLOPURINOL 100 MG TAB PO (08:33)
[2017-09-11] MEDS: GABAPENTIN 100 MG CAP PO ×2 (08:33→20:54)
[2017-09-11] MEDS: INSULIN GLARGINE [LANtus] 3 ML PEN SC (08:49)
[2017-09-11] MEDS: ALTEPLASE (CATHFLO) 2 MG INJ CATHETER ×2 (14:28→14:29)
[2017-09-11] MEDS: AMITRIPTYLINE 25 MG TAB PO (20:54)
[2017-09-11] MEDS: ATORVASTATIN 10 MG TAB PO (20:54)
[2017-09-11] MEDS: INSULIN GLARGINE [LANTus] (100 UNITS/ML) SYG SC (21:40)
[2017-09-12] MEDS: HEPARIN 1000 UNITS/ML 10 ML INJ CATHETER (01:14)
[2017-09-12] MEDS: ACCUCHECK AT 2AM (Patients on SS coverage) XX (02:18)
[2017-09-12] MEDS: morphine LIQ (10 MG/5 ML) CUP PO (03:53)
[2017-09-12] MEDS: SEVELAMER CARBONATE 800 MG TABLET PO ×3 (07:49→17:12)
[2017-09-12] MEDS: INSULIN ASPART [NOVOLOG] 3 ML PEN SC ×6 (07:49→17:15)
[2017-09-12 08:09] LABS: ADD MAN DIFF? NO
[2017-09-12 08:22] LABS: BASOPHIL # 0.1 10^3/ul (0.0-0.1); BASOPHILS % 0.5 % (0.0-2.0); EOSINOPHILS # 0.1 10^3/ul (0.0-0.5); HEMOGLOBIN 8.4 g/dl (14.0-18.0); LYMPHOCYTES # 1.4 10^3/ul (0.8-2.9); LYMPHOCYTES % 10.1 % (15.0-51.0); MEAN CORPUSCULAR HEMOGLOBIN 29.3 pg (29.0-33.0); MEAN CORPUSCULAR HGB CONC 31.1 g/dl (32.0-37.0); MEAN CORPUSCULAR VOLUME 94.1 fl (82.0-101.0); MEAN PLATELET VOLUME 11.1 fl (7.4-10.4); MONOCYTES % 6.8 % (0.0-11.0); NEUTROPHIL # 11.2 10^3/ul (1.6-7.5); NEUTROPHILS % 79.5 % (39.0-77.0); PLATELET COUNT 802 10^3/UL (140-415); RED BLOOD COUNT 2.87 10^6/ul (4.70-6.10); RED CELL DISTRIBUTION WIDTH 15.1 % (11.5-14.5)
[2017-09-12 08:22] LABS: WHITE BLOOD COUNT 14.1 10^3/ul (4.8-10.8)
[2017-09-12] MEDS: GABAPENTIN 100 MG CAP PO (08:27)
[2017-09-12] MEDS: ALLOPURINOL 100 MG TAB PO (08:27)
[2017-09-12] MEDS: ASPIRIN (EC) 81 MG TAB PO (08:37)
[2017-09-12] MEDS: LISINOPRIL 10 MG TAB PO (08:37)
[2017-09-12] MEDS: INSULIN GLARGINE [LANTus] (100 UNITS/ML) SYG SC (08:41)
[2017-09-12 08:45] LABS: ANION GAP 14 (8-16); BLOOD UREA NITROGEN 31 mg/dl (7-20); CALCIUM 9.5 mg/dl (8.4-10.2); CARBON DIOXIDE 28 mmol/L (21-31); CHLORIDE 103 mmol/L (97-110); CREATININE 4.32 mg/dl (0.61-1.24); GLUCOSE 92 mg/dl (70-220); SODIUM 140 mmol/L (135-144)
[2017-09-12 08:50] LABS: POTASSIUM 5.4 mmol/L (3.5-5.1)
[2017-09-12] MEDS: EPOETIN 4000 UNITS/1 ML INJ (ESRD) SC (17:12)
== END 2017-09-12 17:32 | disposition home or self-care (01) | DRG 871 ==
LOC: TEL 09-10 02:33
PROC: 0DB98ZX Excision of Duodenum, Via Natural or Artificial Opening Endoscopic, Diagnostic (ICD-10-PCS; principal; 2017-09-10 14:20)
PROC: 0DB68ZX Excision of Stomach, Via Natural or Artificial Opening Endoscopic, Diagnostic (ICD-10-PCS; 2017-09-10 14:20)
PROC: 0DJD8ZZ Inspection of Lower Intestinal Tract, Via Natural or Artificial Opening Endoscopic (ICD-10-PCS; 2017-09-10 14:20)
PROC: 5A1D70Z Performance of Urinary Filtration, Intermittent, Less than 6 Hours Per Day (ICD-10-PCS; 2017-09-10 14:20)
DX: A41.9 Sepsis, unspecified organism (principal); N18.6 End stage renal disease; I21.A1 Myocardial infarction type 2; I42.9 Cardiomyopathy, unspecified; K92.1 Melena; I13.2 Hypertensive heart and chronic kidney disease with heart failure and with stage 5 chronic kidney disease, or end stage renal disease; I50.30 Unspecified diastolic (congestive) heart failure; D64.9 Anemia, unspecified; E10.22 Type 1 diabetes mellitus with diabetic chronic kidney disease; K29.70 Gastritis, unspecified, without bleeding; E10.65 Type 1 diabetes mellitus with hyperglycemia; I25.10 Atherosclerotic heart disease of native coronary artery without angina pectoris; E10.21 Type 1 diabetes mellitus with diabetic nephropathy; E10.40 Type 1 diabetes mellitus with diabetic neuropathy, unspecified; M10.9 Gout, unspecified; Z99.2 Dependence on renal dialysis; Z79.82 Long term (current) use of aspirin
CPT/HCPCS: 36430; 71045; 80048; 80053; 80061; 80202; 81001; 82270; 82550; 82553; 82728; 82962; 83036; 83540; 83735; 84100; 84443; 84484; 85014; 85018; 85025; 86850; 86900; 86901; 86920; 87040; 87081; 87340; 88305; 90935; 93005; 93306

== ENCOUNTER 2017-09-17 20:59 | Observation (INO) | payer OTHER ==
[2017-09-17 22:54] LABS: WHITE BLOOD COUNT 13.6 10^3/ul (4.8-10.8)
[2017-09-17 22:54] LABS: HEMATOCRIT 23.8 % (42.0-52.0); HEMOGLOBIN 7.4 g/dl (14.0-18.0); MEAN CORPUSCULAR HEMOGLOBIN 29.2 pg (29.0-33.0); MEAN CORPUSCULAR HGB CONC 31.1 g/dl (32.0-37.0); MEAN CORPUSCULAR VOLUME 94.1 fl (82.0-101.0); MEAN PLATELET VOLUME 10.3 fl (7.4-10.4); PLATELET COUNT 716 10^3/UL (140-415); RED BLOOD COUNT 2.53 10^6/ul (4.70-6.10); RED CELL DISTRIBUTION WIDTH 15.2 % (11.5-14.5)
[2017-09-17 22:57] LABS: PATH REVIEW? YES
[2017-09-17 22:58] LABS: ADD MAN DIFF? YES
[2017-09-17 23:13] LABS: ALANINE AMINOTRANSFERASE 40 IU/L (13-69); ALBUMIN 3.3 g/dl (3.3-4.9); ALBUMIN/GLOBULIN RATIO 0.75; ALKALINE PHOSPHATASE 793 IU/L (42-121); ANION GAP 15 (8-16); ASPARTATE AMINO TRANSFERASE 39 IU/L (15-46); BILIRUBIN,INDIRECT 0.3 mg/dl (0-1.1); BILIRUBIN,TOTAL 0.3 mg/dl (0.2-1.3); BLOOD UREA NITROGEN 28 mg/dl (7-20); CARBON DIOXIDE 32 mmol/L (21-31); CHLORIDE 99 mmol/L (97-110); GLUCOSE 97 mg/dl (70-220); SODIUM 142 mmol/L (135-144); TOTAL PROTEIN 7.7 g/dl (6.1-8.1)
[2017-09-18 00:05] LABS: ANISOCYTOSIS 1+ (0-0); HYPOCHROMASIA 1+ (0-0); LYMPHOCYTES #M 1.9 10^3/ul (0.8-2.9); LYMPHOCYTES % (M) 14 % (15-51); MICROCYTOSIS 1+ (0-0); MONOCYTE #M 0.4 10^3/ul (0.3-0.9); MONOCYTES % (M) 3 % (0-11); PLATELET ESTIMATE INCREASED; POLYCHROMASIA 2+ (0-0); SEGMENTED NEUTROPHILS (M) % 83 % (39-77); SMUDGE%M 10 % (0-0)
[2017-09-18] MEDS ORDERED: METOCLOPRAMIDE 10 MG INJ IV (01:00)
[2017-09-18] MEDS ORDERED: BISACODYL (EC) 5 MG TAB PO (01:00)
[2017-09-18] MEDS ORDERED: NACL 0.9% 3 ML SYG IV (01:00)
[2017-09-18] MEDS ORDERED: DOCUSATE SODIUM 100 MG CAP PO (01:00)
[2017-09-18 03:25] LABS: AHG CROSSMATCH 1 1
[2017-09-18] MEDS: ACETAMINOPHEN 325 MG TAB PO (04:13)
[2017-09-18] MEDS ORDERED: GLUCAGON 1 MG INJ IM (08:00)
[2017-09-18] MEDS ORDERED: DEXTROSE 50% 50 ML SYRINGE IV ×2 (08:00)
[2017-09-18] MEDS ORDERED: GLUCOSE GEL 15 GRAM TUBE PO ×2 (08:00)
[2017-09-18] MEDS ORDERED: GLUCOSE GEL 15 GRAM TUBE BUCCAL (08:00)
[2017-09-18] MEDS ORDERED: NON-FORMULARY/PATIENT OWN MED (Omeprazole* 40 MG) PO (09:00)
[2017-09-18] MEDS ORDERED: INSULIN GLARGINE 25 UNIT SC (09:00)
[2017-09-18] MEDS ORDERED: NON-FORMULARY/PATIENT OWN MED (Carvedilol* 6.25 MG) PO (09:00)
[2017-09-18] MEDS: PANTOPRAZOLE (EC) 40 MG TAB PO (09:04)
[2017-09-18] MEDS: GABAPENTIN 100 MG CAP PO ×2 (09:05→20:48)
[2017-09-18] MEDS: LISINOPRIL 10 MG TAB PO (09:05)
[2017-09-18] MEDS: ALLOPURINOL 100 MG TAB PO (09:05)
[2017-09-18] MEDS: ASPIRIN (EC) 81 MG TAB PO (09:05)
[2017-09-18 09:44] LABS: ADD MAN DIFF? NO
[2017-09-18 09:49] LABS: WHITE BLOOD COUNT 11.2 10^3/ul (4.8-10.8)
[2017-09-18 09:49] LABS: BASOPHIL # 0.1 10^3/ul (0.0-0.1); BASOPHILS % 0.6 % (0.0-2.0); EOSINOPHILS # 0.1 10^3/ul (0.0-0.5); EOSINOPHILS % 0.6 % (0.0-7.0); HEMATOCRIT 25.9 % (42.0-52.0); HEMOGLOBIN 7.9 g/dl (14.0-18.0); LYMPHOCYTES # 1.3 10^3/ul (0.8-2.9); LYMPHOCYTES % 11.4 % (15.0-51.0); MEAN CORPUSCULAR HEMOGLOBIN 28.5 pg (29.0-33.0); MEAN CORPUSCULAR HGB CONC 30.5 g/dl (32.0-37.0); MEAN CORPUSCULAR VOLUME 93.5 fl (82.0-101.0); MEAN PLATELET VOLUME 10.3 fl (7.4-10.4); MONOCYTE # 0.6 10^3/ul (0.3-0.9); NEUTROPHIL # 9.2 10^3/ul (1.6-7.5); NEUTROPHILS % 81.9 % (39.0-77.0); PLATELET COUNT 654 10^3/UL (140-415); RED BLOOD COUNT 2.77 10^6/ul (4.70-6.10); RED CELL DISTRIBUTION WIDTH 15.1 % (11.5-14.5)
[2017-09-18 10:17] LABS: ALANINE AMINOTRANSFERASE 22 IU/L (13-69); ALBUMIN 2.8 g/dl (3.3-4.9); ALBUMIN/GLOBULIN RATIO 0.75; ALKALINE PHOSPHATASE 690 IU/L (42-121); ANION GAP 11 (8-16); ASPARTATE AMINO TRANSFERASE 32 IU/L (15-46); BLOOD UREA NITROGEN 33 mg/dl (7-20); CALCIUM 8.7 mg/dl (8.4-10.2); CARBON DIOXIDE 28 mmol/L (21-31); CHLORIDE 105 mmol/L (97-110); CREATININE 3.91 mg/dl (0.61-1.24); GLUCOSE 313 mg/dl (70-220); MAGNESIUM 1.8 mg/dl (1.7-2.5); POTASSIUM 4.6 mmol/L (3.5-5.1); SODIUM 139 mmol/L (135-144); TOTAL PROTEIN 6.5 g/dl (6.1-8.1)
[2017-09-18] MEDS: INSULIN ASPART [NOVOLOG] 3 ML PEN SC ×7 (10:43→20:52)
[2017-09-18] MEDS: INSULIN GLARGINE [LANTus] (100 UNITS/ML) SYG SC ×2 (11:07→20:58)
[2017-09-18 14:40] LABS: ADD MAN DIFF? NO
[2017-09-18 14:42] LABS: BASOPHIL # 0.1 10^3/ul (0.0-0.1); BASOPHILS % 0.6 % (0.0-2.0); EOSINOPHILS # 0.1 10^3/ul (0.0-0.5); EOSINOPHILS % 0.5 % (0.0-7.0); HEMATOCRIT 25.1 % (42.0-52.0); HEMOGLOBIN 7.8 g/dl (14.0-18.0); MEAN CORPUSCULAR HEMOGLOBIN 29.4 pg (29.0-33.0); MEAN CORPUSCULAR HGB CONC 31.1 g/dl (32.0-37.0); MEAN CORPUSCULAR VOLUME 94.7 fl (82.0-101.0); MEAN PLATELET VOLUME 10.2 fl (7.4-10.4); MONOCYTE # 0.6 10^3/ul (0.3-0.9); MONOCYTES % 5.2 % (0.0-11.0); NEUTROPHIL # 9.6 10^3/ul (1.6-7.5); NEUTROPHILS % 84.3 % (39.0-77.0); PLATELET COUNT 602 10^3/UL (140-415); RED BLOOD COUNT 2.65 10^6/ul (4.70-6.10)
[2017-09-18 14:42] LABS: WHITE BLOOD COUNT 11.3 10^3/ul (4.8-10.8)
[2017-09-18] MEDS ORDERED: HEPARIN 1000 UNITS/ML 10 ML INJ CATHETER (17:00)
[2017-09-18] MEDS ORDERED: ALBUMIN HUMAN 25% 50 ML IV (17:00)
[2017-09-18] MEDS ORDERED: SOD CHLORIDE 0.9% 1,000 ML IV (17:00)
[2017-09-18 19:01] LABS: ADD MAN DIFF? NO
[2017-09-18 19:03] LABS: BASOPHIL # 0.1 10^3/ul (0.0-0.1); BASOPHILS % 0.5 % (0.0-2.0); EOSINOPHILS # 0.1 10^3/ul (0.0-0.5); EOSINOPHILS % 0.5 % (0.0-7.0); HEMATOCRIT 26.4 % (42.0-52.0); LYMPHOCYTES % 7.5 % (15.0-51.0); MEAN CORPUSCULAR HGB CONC 30.3 g/dl (32.0-37.0); MEAN CORPUSCULAR VOLUME 95.7 fl (82.0-101.0); MEAN PLATELET VOLUME 10.3 fl (7.4-10.4); MONOCYTE # 0.5 10^3/ul (0.3-0.9); MONOCYTES % 3.9 % (0.0-11.0); NEUTROPHIL # 11.3 10^3/ul (1.6-7.5); NEUTROPHILS % 86.9 % (39.0-77.0); PLATELET COUNT 621 10^3/UL (140-415); RED BLOOD COUNT 2.76 10^6/ul (4.70-6.10); RED CELL DISTRIBUTION WIDTH 15.1 % (11.5-14.5)
[2017-09-18] MEDS: AMITRIPTYLINE 25 MG TAB PO (20:47)
[2017-09-18] MEDS: ATORVASTATIN 10 MG TAB PO (20:48)
[2017-09-18] MEDS ORDERED: NON-FORMULARY/PATIENT OWN MED (Pravastatin Sodium* 20 MG) PO (21:00)
[2017-09-18] MEDS ORDERED: INSULIN GLARGINE 30 UNIT SC (21:00)
[2017-09-18] MEDS ORDERED: INSULIN GLARGINE [LANTus] (100 UNITS/ML) SYG SC (21:00)
[2017-09-19] MEDS: ACCU-CHEK XX (02:00)
[2017-09-19] MEDS: hydrALAzine 20 MG INJ IV (03:11)
[2017-09-19] MEDS: traMADol 50 MG TAB PO (05:07)
[2017-09-19] MEDS: PANTOPRAZOLE (EC) 40 MG TAB PO (05:17)
[2017-09-19 05:22] LABS: ADD MAN DIFF? NO; BASOPHIL # 0.1 10^3/ul (0.0-0.1); BASOPHILS % 0.6 % (0.0-2.0); EOSINOPHILS # 0.1 10^3/ul (0.0-0.5); EOSINOPHILS % 0.6 % (0.0-7.0); HEMATOCRIT 25.6 % (42.0-52.0); HEMOGLOBIN 8.1 g/dl (14.0-18.0); LYMPHOCYTES # 1.2 10^3/ul (0.8-2.9); LYMPHOCYTES % 8.5 % (15.0-51.0); MEAN CORPUSCULAR HEMOGLOBIN 29.7 pg (29.0-33.0); MEAN CORPUSCULAR HGB CONC 31.6 g/dl (32.0-37.0); MEAN CORPUSCULAR VOLUME 93.8 fl (82.0-101.0); MEAN PLATELET VOLUME 10.4 fl (7.4-10.4); MONOCYTE # 0.6 10^3/ul (0.3-0.9); NEUTROPHIL # 12.2 10^3/ul (1.6-7.5); NEUTROPHILS % 85.6 % (39.0-77.0); PLATELET COUNT 627 10^3/UL (140-415); RED BLOOD COUNT 2.73 10^6/ul (4.70-6.10)
[2017-09-19 05:22] LABS: WHITE BLOOD COUNT 14.2 10^3/ul (4.8-10.8)
[2017-09-19 05:45] LABS: ANION GAP 16 (8-16); BLOOD UREA NITROGEN 43 mg/dl (7-20); CALCIUM 8.8 mg/dl (8.4-10.2); CARBON DIOXIDE 22 mmol/L (21-31); CHLORIDE 106 mmol/L (97-110); CREATININE 4.47 mg/dl (0.61-1.24); GLUCOSE 181 mg/dl (70-220); POTASSIUM 4.5 mmol/L (3.5-5.1); SODIUM 139 mmol/L (135-144)
[2017-09-19] MEDS: INSULIN GLARGINE [LANTus] (100 UNITS/ML) SYG SC ×2 (08:21→22:00)
[2017-09-19] MEDS: INSULIN ASPART [NOVOLOG] 3 ML PEN SC ×7 (08:22→21:00)
[2017-09-19] MEDS: ASPIRIN (EC) 81 MG TAB PO (08:24)
[2017-09-19] MEDS: GABAPENTIN 100 MG CAP PO (08:24)
[2017-09-19] MEDS: ALLOPURINOL 100 MG TAB PO (08:24)
[2017-09-19] MEDS: LISINOPRIL 10 MG TAB PO (08:24)
[2017-09-19] MEDS: EPOETIN 10000 UNITS/1 ML INJ (ESRD) SC (17:20)
[2017-09-19] MEDS: ATORVASTATIN 10 MG TAB PO (21:55)
[2017-09-20] MEDS: HEPARIN 1000 UNITS/ML 10 ML INJ CATHETER (00:30)
[2017-09-20] MEDS: GABAPENTIN 100 MG CAP PO (00:31)
[2017-09-20] MEDS: AMITRIPTYLINE 25 MG TAB PO (00:31)
== END 2017-09-20 00:50 | disposition home or self-care (01) ==
LOC: MS1 23:56 → E/R 20:59
DX: D64.9 Anemia, unspecified (principal); I12.0 Hypertensive chronic kidney disease with stage 5 chronic kidney disease or end stage renal disease; E10.22 Type 1 diabetes mellitus with diabetic chronic kidney disease; N18.6 End stage renal disease; Z99.2 Dependence on renal dialysis; R74.8 Abnormal levels of other serum enzymes; D72.829 Elevated white blood cell count, unspecified; M10.9 Gout, unspecified; E78.5 Hyperlipidemia, unspecified; Z79.4 Long term (current) use of insulin; Z79.82 Long term (current) use of aspirin
CPT/HCPCS: 36415; 36430; 71045; 76705; 80048; 80053; 82962; 83735; 85025; 86850; 86870; 86900; 86901; 86920; 90935; 99285-25

== ENCOUNTER 2018-01-27 20:11 | Inpatient (IN) | payer OTHER ==
[2018-01-27] MEDS: ONDANSETRON 4 MG INJ IV (20:57)
[2018-01-27 21:04] LABS: ADD MAN DIFF? NO
[2018-01-27 21:08] LABS: BASOPHIL # 0.1 10^3/ul (0.0-0.1); BASOPHILS % 1.1 % (0.0-2.0); EOSINOPHILS # 0.6 10^3/ul (0.0-0.5); EOSINOPHILS % 6.9 % (0.0-7.0); HEMATOCRIT 37.1 % (42.0-52.0); HEMOGLOBIN 11.9 g/dl (14.0-18.0); LYMPHOCYTES # 1.1 10^3/ul (0.8-2.9); LYMPHOCYTES % 12.4 % (15.0-51.0); MEAN CORPUSCULAR HEMOGLOBIN 31.5 pg (29.0-33.0); MEAN CORPUSCULAR HGB CONC 32.1 g/dl (32.0-37.0); MEAN CORPUSCULAR VOLUME 98.1 fl (82.0-101.0); MONOCYTE # 0.6 10^3/ul (0.3-0.9); MONOCYTES % 7.1 % (0.0-11.0); NEUTROPHIL # 6.2 10^3/ul (1.6-7.5); NEUTROPHILS % 72.3 % (39.0-77.0); PLATELET COUNT 417 10^3/UL (140-415); RED BLOOD COUNT 3.78 10^6/ul (4.70-6.10); RED CELL DISTRIBUTION WIDTH 12.9 % (11.5-14.5)
[2018-01-27 21:08] LABS: WHITE BLOOD COUNT 8.5 10^3/ul (4.8-10.8)
[2018-01-27 21:12] LABS: ADD UMIC YES; UR ASCORBIC ACID NEGATIVE (NEGATIVE); UR BACTERIA FEW /HPF (NONE SEEN); UR BILIRUBIN (Dip) NEGATIVE (NEGATIVE); UR BLOOD (Dip) 1+ mg/dL (NEGATIVE); UR CLARITY CLEAR (CLEAR); UR COLOR YELLOW (YELLOW); UR GLUCOSE (Dip) 3+ mg/dL (NEGATIVE); UR KETONES (Dip) NEGATIVE (NEGATIVE); UR LEUKOCYTE ESTERASE (Dip) NEGATIVE Leu/ul (NEGATIVE); UR NITRITE (Dip) NEGATIVE (NEGATIVE); UR RBC 0 /HPF (0-5); UR SPECIFIC GRAVITY (Dip) 1.017 (1.003-1.030); UR TOTAL PROTEIN (Dip) 3+ mg/dl (NEGATIVE); UR UROBILINOGEN (Dip) NEGATIVE (NEGATIVE); UR WBC 1 /HPF (0-5)
[2018-01-27 21:25] LABS: ALANINE AMINOTRANSFERASE 21 IU/L (13-69); ALBUMIN 3.4 g/dl (3.3-4.9); ALBUMIN/GLOBULIN RATIO 1.06; ALKALINE PHOSPHATASE 139 IU/L (42-121); ANION GAP 13 (5-13); ASPARTATE AMINO TRANSFERASE 28 IU/L (15-46); BILIRUBIN,INDIRECT 0.4 mg/dl (0-1.1); BILIRUBIN,TOTAL 0.4 mg/dl (0.2-1.3); BLOOD UREA NITROGEN 65 mg/dl (7-20); CALCIUM 9.3 mg/dl (8.4-10.2); CARBON DIOXIDE 20 mmol/L (21-31); CHLORIDE 107 mmol/L (97-110); CREATININE 5.66 mg/dl (0.61-1.24); Estimated GFR 11 mL/min (>60); GLUCOSE 362 mg/dl (70-220); POTASSIUM 4.8 mmol/L (3.5-5.1); SODIUM 140 mmol/L (135-144); TOTAL PROTEIN 6.6 g/dl (6.1-8.1)
[2018-01-27] MEDS: DIPHTH/TET/ACEL PERTUSS (ADULT) 0.5 ML VIAL IM* (21:26)
[2018-01-27 21:28] LABS: INR 1.02; PARTIAL THROMBOPLASTIN TIME 30.5 Sec (23.0-35.0); PROTIME 13.5 Sec (11.9-14.9); PT RATIO 1.1
[2018-01-27 21:28] LABS: AMMONIA < 9 umol/l (9-30)
[2018-01-27 21:36] LABS: TROPONIN-I 0.015 ng/ml (0.000-0.120)
[2018-01-28] MEDS ORDERED: ONDANSETRON 4 MG INJ IV (01:00)
[2018-01-28] MEDS ORDERED: ACETAMINOPHEN 325 MG TAB PO (01:00)
[2018-01-28] MEDS ORDERED: GLUCAGON 1 MG INJ IM (02:00)
[2018-01-28] MEDS ORDERED: GLUCOSE GEL 15 GRAM TUBE BUCCAL (02:00)
[2018-01-28] MEDS ORDERED: GLUCOSE GEL 15 GRAM TUBE PO (02:00)
[2018-01-28] MEDS ORDERED: DEXTROSE 50% 50 ML SYRINGE IV (02:00)
[2018-01-28] MEDS: hydrALAzine 20 MG INJ IV (02:06)
[2018-01-28] MEDS: ACCU-CHEK XX (02:18)
[2018-01-28] MEDS: INSULIN ASPART [NOVOLOG] 3 ML PEN SC ×8 (02:18→21:00)
[2018-01-28] MEDS: traMADol 50 MG TAB PO ×2 (02:29→14:42)
[2018-01-28] MEDS: AMITRIPTYLINE 25 MG TAB PO ×2 (03:08→21:43)
[2018-01-28] MEDS: PANTOPRAZOLE (EC) 40 MG TAB PO (06:12)
[2018-01-28 07:00] LABS: ADD MAN DIFF? NO
[2018-01-28 07:09] LABS: BASOPHIL # 0.1 10^3/ul (0.0-0.1); BASOPHILS % 1.1 % (0.0-2.0); EOSINOPHILS # 0.8 10^3/ul (0.0-0.5); EOSINOPHILS % 8.6 % (0.0-7.0); HEMATOCRIT 36.6 % (42.0-52.0); LYMPHOCYTES # 1.3 10^3/ul (0.8-2.9); LYMPHOCYTES % 14.3 % (15.0-51.0); MEAN CORPUSCULAR HEMOGLOBIN 31.6 pg (29.0-33.0); MEAN CORPUSCULAR HGB CONC 32.8 g/dl (32.0-37.0); MEAN CORPUSCULAR VOLUME 96.3 fl (82.0-101.0); MEAN PLATELET VOLUME 11.1 fl (7.4-10.4); MONOCYTE # 0.7 10^3/ul (0.3-0.9); MONOCYTES % 7.3 % (0.0-11.0); NEUTROPHIL # 6.2 10^3/ul (1.6-7.5); NEUTROPHILS % 68.5 % (39.0-77.0); PLATELET COUNT 413 10^3/UL (140-415); RED CELL DISTRIBUTION WIDTH 12.8 % (11.5-14.5)
[2018-01-28 07:38] LABS: ALANINE AMINOTRANSFERASE 25 IU/L (13-69); ALBUMIN 3.1 g/dl (3.3-4.9); ALBUMIN/GLOBULIN RATIO 0.96; ALKALINE PHOSPHATASE 127 IU/L (42-121); ANION GAP 10 (5-13); ASPARTATE AMINO TRANSFERASE 24 IU/L (15-46); BILIRUBIN,INDIRECT 0.3 mg/dl (0-1.1); BILIRUBIN,TOTAL 0.3 mg/dl (0.2-1.3); BLOOD UREA NITROGEN 60 mg/dl (7-20); CALCIUM 9.3 mg/dl (8.4-10.2); CARBON DIOXIDE 20 mmol/L (21-31); CHLORIDE 113 mmol/L (97-110); CREATININE 5.25 mg/dl (0.61-1.24); Estimated GFR 12 mL/min (>60); GLUCOSE 175 mg/dl (70-220); POTASSIUM 4.4 mmol/L (3.5-5.1); SODIUM 143 mmol/L (135-144); TOTAL PROTEIN 6.3 g/dl (6.1-8.1)
[2018-01-28] MEDS: LISINOPRIL 10 MG TAB PO (09:00)
[2018-01-28] MEDS: GABAPENTIN 100 MG CAP PO ×2 (09:24→21:43)
[2018-01-28] MEDS: ASPIRIN (EC) 81 MG TAB PO (09:25)
[2018-01-28] MEDS: ALLOPURINOL 100 MG TAB PO (09:25)
[2018-01-28] MEDS: INSULIN GLARGINE [LANTus] (100 UNITS/ML) SYG SC (09:54)
[2018-01-28] MEDS: DEXTROSE 50% 50 ML SYRINGE IV (12:15)
[2018-01-28] MEDS ORDERED: HEPARIN 1000 UNITS/NS (A-LINE) 1,000 ML (12:54)
[2018-01-28] MEDS ORDERED: HEPARIN 1000 UNITS/ML 10 ML INJ (12:54)
[2018-01-28] MEDS ORDERED: LIDOCAINE 2% (MDV) 20 ML INJ (12:54)
[2018-01-28] MEDS ORDERED: ALBUMIN HUMAN 25% 50 ML IV (16:30)
[2018-01-28] MEDS ORDERED: SODIUM CHLORIDE 0.9% 1L BAG IV (16:30)
[2018-01-28 16:59] LABS: HEPATITIS B SURFACE ANTIGEN NEGATIVE (NEGATIVE)
[2018-01-28] MEDS ORDERED: AMITRIPTYLINE 25 MG TAB PO (21:00)
[2018-01-28] MEDS: ATORVASTATIN 10 MG TAB PO (21:43)
[2018-01-29] MEDS: HEPARIN 1000 UNITS/ML 10 ML INJ CATHETER (00:45)
[2018-01-29] MEDS: ACCU-CHEK XX (02:00)
[2018-01-29] MEDS: PANTOPRAZOLE (EC) 40 MG TAB PO (06:21)
[2018-01-29 07:10] LABS: ANION GAP 8 (5-13); BLOOD UREA NITROGEN 35 mg/dl (7-20); CALCIUM 8.5 mg/dl (8.4-10.2); CARBON DIOXIDE 31 mmol/L (21-31); CHLORIDE 101 mmol/L (97-110); CREATININE 3.59 mg/dl (0.61-1.24); Estimated GFR 18 mL/min (>60); GLUCOSE 270 mg/dl (70-220); POTASSIUM 4.1 mmol/L (3.5-5.1); SODIUM 140 mmol/L (135-144)
[2018-01-29] MEDS: INSULIN ASPART [NOVOLOG] 3 ML PEN SC ×5 (08:29→22:24)
[2018-01-29] MEDS: LISINOPRIL 10 MG TAB PO (08:30)
[2018-01-29] MEDS: INSULIN GLARGINE [LANTus] (100 UNITS/ML) SYG SC (08:30)
[2018-01-29] MEDS: ASPIRIN (EC) 81 MG TAB PO (08:30)
[2018-01-29] MEDS: ALLOPURINOL 100 MG TAB PO (08:30)
[2018-01-29] MEDS: GABAPENTIN 100 MG CAP PO ×2 (08:41→20:51)
[2018-01-29] MEDS: DEXTROSE 50% 50 ML SYRINGE IV ×2 (11:34→12:43)
[2018-01-29] MEDS ORDERED: INSULIN ASPART [NOVOLOG] 3 ML PEN SC ×2 (11:50)
[2018-01-29] MEDS ORDERED: DEXTROSE 5%-0.45% NACL 500 ML IV (12:00)
[2018-01-29] MEDS: DEXTROSE 5%-0.45% NACL 1,000 ML IV (12:43)
[2018-01-29] MEDS: ATORVASTATIN 10 MG TAB PO (20:51)
[2018-01-29] MEDS: AMITRIPTYLINE 25 MG TAB PO (20:52)
[2018-01-30] MEDS: ACCU-CHEK XX ×2 (02:00)
[2018-01-30 03:46] LABS: GLUCOSE 417 mg/dl (70-220)
[2018-01-30] MEDS: INSULIN ASPART [NOVOLOG] 3 ML PEN SC ×6 (05:20→20:15)
[2018-01-30] MEDS: PANTOPRAZOLE (EC) 40 MG TAB PO (06:20)
[2018-01-30] MEDS: INSULIN GLARGINE [LANTus] (100 UNITS/ML) SYG SC (08:00)
[2018-01-30] MEDS ORDERED: INSULIN GLARGINE [LANTus] (100 UNITS/ML) SYG SC (08:00)
[2018-01-30] MEDS: ALLOPURINOL 100 MG TAB PO (08:16)
[2018-01-30] MEDS: ASPIRIN (EC) 81 MG TAB PO (08:16)
[2018-01-30] MEDS: GABAPENTIN 100 MG CAP PO ×2 (08:16→20:09)
[2018-01-30] MEDS: LISINOPRIL 10 MG TAB PO (09:00)
[2018-01-30] MEDS ORDERED: SODIUM CHLORIDE 0.9% 1L BAG IV (10:00)
[2018-01-30] MEDS: HEPARIN 1000 UNITS/ML 10 ML INJ CATHETER (18:13)
[2018-01-30] MEDS: ATORVASTATIN 10 MG TAB PO (20:09)
[2018-01-30] MEDS: AMITRIPTYLINE 25 MG TAB PO (20:09)
[2018-01-30] MEDS: traMADol 50 MG TAB PO (20:17)
[2018-01-31] MEDS: ACCU-CHEK XX ×2 (02:00→02:51)
[2018-01-31] MEDS: PANTOPRAZOLE (EC) 40 MG TAB PO (05:22)
[2018-01-31] MEDS: INSULIN GLARGINE [LANTus] (100 UNITS/ML) SYG SC ×3 (08:08→20:33)
[2018-01-31] MEDS: INSULIN ASPART [NOVOLOG] 3 ML PEN SC ×8 (08:08→20:33)
[2018-01-31] MEDS: LISINOPRIL 10 MG TAB PO (08:14)
[2018-01-31] MEDS: ASPIRIN (EC) 81 MG TAB PO (08:15)
[2018-01-31] MEDS: ALLOPURINOL 100 MG TAB PO (08:15)
[2018-01-31] MEDS: GABAPENTIN 100 MG CAP PO ×2 (08:15→20:26)
[2018-01-31 10:15] LABS: GLUCOSE 564 mg/dl (70-220)
[2018-01-31] MEDS: GLUCOSE GEL 15 GRAM TUBE PO (14:35)
[2018-01-31 15:24] LABS: GLUCOSE 64 mg/dl (70-220)
[2018-01-31] MEDS ORDERED: SODIUM CHLORIDE 0.9% 1L BAG IV (17:00)
[2018-01-31] MEDS ORDERED: HEPARIN 1000 UNITS/ML 10 ML INJ CATHETER (17:00)
[2018-01-31] MEDS ORDERED: ALBUMIN HUMAN 25% 50 ML IV (17:00)
[2018-01-31] MEDS: ATORVASTATIN 10 MG TAB PO (20:26)
[2018-01-31] MEDS: AMITRIPTYLINE 25 MG TAB PO (20:26)
[2018-01-31] MEDS: traMADol 50 MG TAB PO (20:36)
[2018-02-01] MEDS: ACCU-CHEK XX (02:10)
[2018-02-01] MEDS: PANTOPRAZOLE (EC) 40 MG TAB PO (05:17)
[2018-02-01 07:33] LABS: ANION GAP 9 (5-13); BLOOD UREA NITROGEN 64 mg/dl (7-20); CALCIUM 9.6 mg/dl (8.4-10.2); CARBON DIOXIDE 25 mmol/L (21-31); CHLORIDE 104 mmol/L (97-110); CREATININE 4.37 mg/dl (0.61-1.24); Estimated GFR 15 mL/min (>60); GLUCOSE 112 mg/dl (70-220); POTASSIUM 4.3 mmol/L (3.5-5.1); SODIUM 138 mmol/L (135-144)
[2018-02-01] MEDS: INSULIN ASPART [NOVOLOG] 3 ML PEN SC ×4 (07:55→13:41)
[2018-02-01] MEDS: GABAPENTIN 100 MG CAP PO (08:25)
[2018-02-01] MEDS: LISINOPRIL 10 MG TAB PO (08:25)
[2018-02-01] MEDS: ALLOPURINOL 100 MG TAB PO (08:25)
[2018-02-01] MEDS: ASPIRIN (EC) 81 MG TAB PO (08:25)
[2018-02-01] MEDS: INSULIN GLARGINE [LANTus] (100 UNITS/ML) SYG SC (08:32)
[2018-02-01] MEDS: HEPARIN 1000 UNITS/ML 10 ML INJ CATHETER (13:47)
== END 2018-02-01 16:45 | disposition home or self-care (01) | DRG 314 ==
LOC: E/R 20:11 → TEL 22:52
PROC: 0J2TXYZ Change Other Device in Trunk Subcutaneous Tissue and Fascia, External Approach (ICD-10-PCS; principal; 2018-01-28 12:54)
PROC: 5A1D70Z Performance of Urinary Filtration, Intermittent, Less than 6 Hours Per Day (ICD-10-PCS; 2018-01-28 12:54)
DX: T82.41XA Breakdown (mechanical) of vascular dialysis catheter, initial encounter (principal); N18.6 End stage renal disease; I13.2 Hypertensive heart and chronic kidney disease with heart failure and with stage 5 chronic kidney disease, or end stage renal disease; I50.22 Chronic systolic (congestive) heart failure; E10.22 Type 1 diabetes mellitus with diabetic chronic kidney disease; E10.65 Type 1 diabetes mellitus with hyperglycemia; I10 Essential (primary) hypertension; Z99.2 Dependence on renal dialysis; M79.674 Pain in right toe(s); Z91.11 Patient's noncompliance with dietary regimen
CPT/HCPCS: 36415; 36561; 70450; 71045; 73660; 80048; 80053; 81001; 82140; 82947; 82962; 84484; 85025; 85610; 85730; 87340; 90471; 90715; 90935; 93005; 93922; 96374; 99217; 99285-25

== ENCOUNTER 2018-03-27 06:36 | Day surgery (SDC) | payer OTHER ==
[2018-03-27 08:06] LABS: ADD MAN DIFF? NO
[2018-03-27 08:09] LABS: WHITE BLOOD COUNT 8.7 10^3/ul (4.8-10.8)
[2018-03-27 08:09] LABS: BASOPHIL # 0.1 10^3/ul (0.0-0.1); BASOPHILS % 0.7 % (0.0-2.0); EOSINOPHILS # 0.5 10^3/ul (0.0-0.5); EOSINOPHILS % 5.8 % (0.0-7.0); HEMATOCRIT 36.7 % (42.0-52.0); HEMOGLOBIN 12.1 g/dl (14.0-18.0); LYMPHOCYTES # 1.6 10^3/ul (0.8-2.9); MEAN CORPUSCULAR HEMOGLOBIN 31.5 pg (29.0-33.0); MEAN CORPUSCULAR VOLUME 95.6 fl (82.0-101.0); MEAN PLATELET VOLUME 11.7 fl (7.4-10.4); MONOCYTE # 0.6 10^3/ul (0.3-0.9); MONOCYTES % 6.7 % (0.0-11.0); NEUTROPHILS % 68.6 % (39.0-77.0); PLATELET COUNT 285 10^3/UL (140-415); RED BLOOD COUNT 3.84 10^6/ul (4.70-6.10); RED CELL DISTRIBUTION WIDTH 13.2 % (11.5-14.5)
[2018-03-27 08:31] LABS: INR 0.96; PROTIME 12.9 Sec (11.9-14.9)
[2018-03-27 08:32] LABS: PARTIAL THROMBOPLASTIN TIME 27.2 Sec (23.0-35.0)
[2018-03-27 08:35] LABS: ALANINE AMINOTRANSFERASE 27 IU/L (13-69); ALBUMIN 3.1 g/dl (3.3-4.9); ALBUMIN/GLOBULIN RATIO 1.03; ALKALINE PHOSPHATASE 206 IU/L (42-121); ANION GAP 9 (5-13); ASPARTATE AMINO TRANSFERASE 24 IU/L (15-46); BILIRUBIN,INDIRECT 0.1 mg/dl (0-1.1); BILIRUBIN,TOTAL 0.1 mg/dl (0.2-1.3); CALCIUM 9.1 mg/dl (8.4-10.2); CARBON DIOXIDE 27 mmol/L (21-31); CHLORIDE 94 mmol/L (97-110); Estimated GFR 13 mL/min (>60); POTASSIUM 4.4 mmol/L (3.5-5.1); TOTAL PROTEIN 6.1 g/dl (6.1-8.1)
[2018-03-27 08:37] LABS: SODIUM 130 mmol/L (135-144)
[2018-03-27 08:38] LABS: BLOOD UREA NITROGEN 43 mg/dl (7-20); CREATININE 4.74 mg/dl (0.61-1.24)
[2018-03-27] MEDS: INSULIN REGULAR, HUMAN 100 UNIT/1 ML 3ML VIAL SC (08:39)
[2018-03-27 08:50] LABS: GLUCOSE 606 mg/dl (70-220)
== END 2018-03-27 09:30 | disposition home or self-care (01) ==
LOC: SDS 06:36
DX: I12.0 Hypertensive chronic kidney disease with stage 5 chronic kidney disease or end stage renal disease (principal); N18.6 End stage renal disease; E11.9 Type 2 diabetes mellitus without complications; Z53.8 Procedure and treatment not carried out for other reasons
CPT/HCPCS: 71045; 80053; 82962; 85025; 85610; 85730; 93005

== ENCOUNTER 2018-03-27 09:13 | Inpatient (IN) | payer OTHER ==
[2018-03-27] MEDS: AMITRIPTYLINE 50 MG TAB PO (01:30)
[2018-03-27] MEDS: GABAPENTIN 100 MG CAP PO (01:30)
[2018-03-27] MEDS: SOD CHLORIDE 0.9% 730 ML IV (10:09)
[2018-03-27 10:10] LABS: ADD MAN DIFF? NO
[2018-03-27 10:12] LABS: WHITE BLOOD COUNT 8.5 10^3/ul (4.8-10.8)
[2018-03-27 10:12] LABS: BASOPHIL # 0.1 10^3/ul (0.0-0.1); BASOPHILS % 0.7 % (0.0-2.0); EOSINOPHILS # 0.6 10^3/ul (0.0-0.5); EOSINOPHILS % 6.5 % (0.0-7.0); HEMATOCRIT 37.3 % (42.0-52.0); HEMOGLOBIN 12.4 g/dl (14.0-18.0); LYMPHOCYTES # 1.5 10^3/ul (0.8-2.9); MEAN CORPUSCULAR HEMOGLOBIN 31.4 pg (29.0-33.0); MEAN CORPUSCULAR HGB CONC 33.2 g/dl (32.0-37.0); MEAN CORPUSCULAR VOLUME 94.4 fl (82.0-101.0); MEAN PLATELET VOLUME 11.5 fl (7.4-10.4); MONOCYTE # 0.5 10^3/ul (0.3-0.9); MONOCYTES % 5.9 % (0.0-11.0); NEUTROPHIL # 5.9 10^3/ul (1.6-7.5); NEUTROPHILS % 68.5 % (39.0-77.0); PLATELET COUNT 294 10^3/UL (140-415); RED BLOOD COUNT 3.95 10^6/ul (4.70-6.10); RED CELL DISTRIBUTION WIDTH 13.1 % (11.5-14.5)
[2018-03-27 10:18] LABS: MODE ROOM AIR; MetHgb Venous 0.1 %; Sample Type Blood venous; Site VENOUS LINE; Venous COHb 0.7 %; Venous Fraction OxyHgb 80.9 %; Venous Oxygen Sat 81.6 mmHG (55.0-75.0); Venous Total Hemglobin 13.8 g/dl
[2018-03-27 10:30] LABS: ANION GAP 9 (5-13); BLOOD UREA NITROGEN 43 mg/dl (7-20); CALCIUM 9.5 mg/dl (8.4-10.2); CARBON DIOXIDE 26 mmol/L (21-31); CHLORIDE 98 mmol/L (97-110); CREATININE 4.72 mg/dl (0.61-1.24); Estimated GFR 13 mL/min (>60); MAGNESIUM 1.9 mg/dl (1.7-2.5); PHOSPHORUS 4.9 mg/dl (2.5-4.9); SODIUM 133 mmol/L (135-144)
[2018-03-27 10:37] LABS: GLUCOSE 453 mg/dl (70-220)
[2018-03-27] MEDS ORDERED: INSULIN LISPRO 100 UNIT/ML VIAL SC (11:00)
[2018-03-27] MEDS ORDERED: ONDANSETRON 4 MG INJ IV (12:00)
[2018-03-27] MEDS ORDERED: ACETAMINOPHEN 325 MG TAB PO (12:00)
[2018-03-27 14:47] LABS: ADD UMIC YES; UR ASCORBIC ACID NEGATIVE (NEGATIVE); UR BILIRUBIN (Dip) NEGATIVE (NEGATIVE); UR BLOOD (Dip) NEGATIVE (NEGATIVE); UR CLARITY CLEAR (CLEAR); UR COLOR STRAW (YELLOW); UR GLUCOSE (Dip) 3+ mg/dL (NEGATIVE); UR KETONES (Dip) NEGATIVE (NEGATIVE); UR LEUKOCYTE ESTERASE (Dip) NEGATIVE Leu/ul (NEGATIVE); UR NITRITE (Dip) NEGATIVE (NEGATIVE); UR RBC 0 /HPF (0-5); UR SPECIFIC GRAVITY (Dip) 1.015 (1.003-1.030); UR TOTAL PROTEIN (Dip) 3+ mg/dl (NEGATIVE); UR UROBILINOGEN (Dip) NEGATIVE (NEGATIVE); UR WBC 0 /HPF (0-5)
[2018-03-27] MEDS ORDERED: GLUCOSE GEL 15 GRAM TUBE PO ×2 (16:00)
[2018-03-27] MEDS ORDERED: DEXTROSE 50% 50 ML SYRINGE IV (16:00)
[2018-03-27] MEDS ORDERED: GLUCAGON 1 MG INJ IM (16:00)
[2018-03-27] MEDS ORDERED: GLUCOSE GEL 15 GRAM TUBE BUCCAL (16:00)
[2018-03-27] MEDS ORDERED: HEPARIN 1000 UNITS/ML 10 ML INJ CATHETER (17:00)
[2018-03-27] MEDS ORDERED: INSULIN ASPART [NOVOLOG] 3 ML PEN SC (17:00)
[2018-03-27] MEDS: INSULIN ASPART [NOVOLOG] 3 ML PEN SC ×2 (18:07→23:03)
[2018-03-27] MEDS: DILTIAZEM (SR) 60 MG CAP PO (19:53)
[2018-03-27] MEDS ORDERED: INSULIN GLARGINE [LANtus] 3 ML PEN SC (21:00)
[2018-03-27] MEDS: INSULIN GLARGINE [LANTus] (100 UNITS/ML) SYG SC (23:02)
[2018-03-28] MEDS: DILTIAZEM (SR) 60 MG CAP PO ×3 (01:00→21:16)
[2018-03-28] MEDS: HEPARIN 1000 UNITS/ML 10 ML INJ CATHETER (01:24)
[2018-03-28] MEDS: ACCU-CHEK XX (02:00)
[2018-03-28] MEDS: PANTOPRAZOLE 40 MG INJ IV (05:34)
[2018-03-28 05:50] LABS: ADD MAN DIFF? NO
[2018-03-28 06:14] LABS: WHITE BLOOD COUNT 8.9 10^3/ul (4.8-10.8)
[2018-03-28 06:14] LABS: BASOPHIL # 0.1 10^3/ul (0.0-0.1); BASOPHILS % 0.7 % (0.0-2.0); EOSINOPHILS # 0.5 10^3/ul (0.0-0.5); EOSINOPHILS % 5.6 % (0.0-7.0); HEMATOCRIT 41.2 % (42.0-52.0); HEMOGLOBIN 13.7 g/dl (14.0-18.0); LYMPHOCYTES # 1.7 10^3/ul (0.8-2.9); LYMPHOCYTES % 19.1 % (15.0-51.0); MEAN CORPUSCULAR HEMOGLOBIN 31.2 pg (29.0-33.0); MEAN CORPUSCULAR HGB CONC 33.3 g/dl (32.0-37.0); MEAN CORPUSCULAR VOLUME 93.8 fl (82.0-101.0); MEAN PLATELET VOLUME 11.5 fl (7.4-10.4); MONOCYTE # 0.6 10^3/ul (0.3-0.9); MONOCYTES % 6.2 % (0.0-11.0); NEUTROPHILS % 68.2 % (39.0-77.0); PLATELET COUNT 308 10^3/UL (140-415); RED BLOOD COUNT 4.39 10^6/ul (4.70-6.10); RED CELL DISTRIBUTION WIDTH 12.8 % (11.5-14.5)
[2018-03-28 06:36] LABS: ANION GAP 7 (5-13); BLOOD UREA NITROGEN 29 mg/dl (7-20); CALCIUM 9.4 mg/dl (8.4-10.2); CARBON DIOXIDE 27 mmol/L (21-31); CHLORIDE 102 mmol/L (97-110); CREATININE 3.56 mg/dl (0.61-1.24); Estimated GFR 19 mL/min (>60); GLUCOSE 297 mg/dl (70-220); SODIUM 136 mmol/L (135-144)
[2018-03-28 07:06] LABS: HEMOGLOBIN A1C 10.7 % (0-5.9)
[2018-03-28] MEDS: INSULIN ASPART [NOVOLOG] 3 ML PEN SC ×4 (08:43→21:15)
[2018-03-28] MEDS: GABAPENTIN 100 MG CAP PO ×3 (08:51→21:15)
[2018-03-28] MEDS: ALLOPURINOL 100 MG TAB PO (08:51)
[2018-03-28] MEDS ORDERED: HEPARIN 1000 UNITS/ML 10 ML INJ CATHETER (15:30)
[2018-03-28] MEDS: INSULIN GLARGINE [LANTus] (100 UNITS/ML) SYG SC (21:13)
[2018-03-28] MEDS: AMITRIPTYLINE 50 MG TAB PO (21:17)
[2018-03-29] MEDS: ACCU-CHEK XX (02:00)
[2018-03-29] MEDS: DEXTROSE 5%-0.45% NACL 1,000 ML IV ×2 (04:42→17:24)
[2018-03-29] MEDS: PANTOPRAZOLE (EC) 40 MG TAB PO ×2 (06:00→07:26)
[2018-03-29 06:24] LABS: ANION GAP 12 (5-13); BLOOD UREA NITROGEN 44 mg/dl (7-20); CALCIUM 9.8 mg/dl (8.4-10.2); CARBON DIOXIDE 24 mmol/L (21-31); CHLORIDE 100 mmol/L (97-110); CREATININE 4.53 mg/dl (0.61-1.24); Estimated GFR 14 mL/min (>60); GLUCOSE 340 mg/dl (70-220); POTASSIUM 4.2 mmol/L (3.5-5.1); SODIUM 136 mmol/L (135-144)
[2018-03-29] MEDS ORDERED: ETOMIDATE 20 MG INJ (07:00)
[2018-03-29] MEDS ORDERED: CEFAZOLIN 1 GM INJ (07:00)
[2018-03-29] MEDS: INSULIN ASPART [NOVOLOG] 3 ML PEN SC ×4 (08:00→21:00)
[2018-03-29] MEDS: GABAPENTIN 100 MG CAP PO ×3 (08:31→22:16)
[2018-03-29] MEDS: ALLOPURINOL 100 MG TAB PO (08:31)
[2018-03-29] MEDS: DILTIAZEM (SR) 60 MG CAP PO ×2 (08:35→22:17)
[2018-03-29] MEDS: DEXTROSE 50% 50 ML SYRINGE IV ×2 (11:41→11:46)
[2018-03-29] MEDS: HEPARIN 1000 UNITS/ML 10 ML INJ IRR (13:00)
[2018-03-29] MEDS ORDERED: FENTAnyl 50 MCG/ML VIAL (13:02)
[2018-03-29] MEDS ORDERED: LIDOCAINE 2% (SDV) 5 ML INJ (13:02)
[2018-03-29] MEDS ORDERED: MIDAZOLAM 1 MG/ML 2 ML INJ (13:02)
[2018-03-29] MEDS ORDERED: ROPIVACAINE 0.5 % 30 ML VIAL (13:02)
[2018-03-29] MEDS ORDERED: LIDOCAINE 1% (MPF) 30 ML INJ (13:41)
[2018-03-29] MEDS ORDERED: HEPARIN 1000 UNITS/ML 10 ML INJ ×2 (13:41→13:43)
[2018-03-29] MEDS ORDERED: GELATIN SIZE 100 SPONGE (13:43)
[2018-03-29] MEDS ORDERED: THROMBIN 5000 UNIT VIAL (13:43)
[2018-03-29] MEDS ORDERED: PHENYLephrine (100 MCG/ML) 5ML SYG (14:30)
[2018-03-29] MEDS: HEPARIN 1000 UNITS/ML 10 ML INJ CATHETER ×2 (18:30→22:14)
[2018-03-29] MEDS ORDERED: HEPARIN 1000 UNITS/ML 10 ML INJ CATHETER (19:30)
[2018-03-29] MEDS: INSULIN GLARGINE [LANTus] (100 UNITS/ML) SYG SC (21:41)
[2018-03-29] MEDS: AMITRIPTYLINE 50 MG TAB PO (22:16)
[2018-03-30] MEDS: ACCU-CHEK XX (01:53)
[2018-03-30] MEDS: PANTOPRAZOLE (EC) 40 MG TAB PO (05:59)
[2018-03-30] MEDS: traMADol 50 MG TAB PO (07:13)
[2018-03-30] MEDS: GABAPENTIN 100 MG CAP PO ×2 (08:43→13:32)
[2018-03-30] MEDS: ALLOPURINOL 100 MG TAB PO (08:44)
[2018-03-30] MEDS: INSULIN ASPART [NOVOLOG] 3 ML PEN SC ×2 (08:47→12:00)
[2018-03-30] MEDS: DILTIAZEM (SR) 60 MG CAP PO (08:53)
== END 2018-03-30 14:15 | disposition home or self-care (01) | DRG 673 ==
LOC: E/R 09:13 → PP2 11:59
PROVIDERS: Internal Medicine Cardiovascular Disease
PROC: 03180ZF Bypass Left Brachial Artery to Lower Arm Vein, Open Approach (ICD-10-PCS; principal; 2018-03-29 12:00)
PROC: 5A1D70Z Performance of Urinary Filtration, Intermittent, Less than 6 Hours Per Day (ICD-10-PCS; 2018-03-29 13:25)
PROC: 5A1D70Z Performance of Urinary Filtration, Intermittent, Less than 6 Hours Per Day (ICD-10-PCS; 2018-03-29 13:25)
DX: I12.0 Hypertensive chronic kidney disease with stage 5 chronic kidney disease or end stage renal disease (principal); N18.6 End stage renal disease; I42.9 Cardiomyopathy, unspecified; E11.65 Type 2 diabetes mellitus with hyperglycemia; E11.22 Type 2 diabetes mellitus with diabetic chronic kidney disease; E11.40 Type 2 diabetes mellitus with diabetic neuropathy, unspecified; E78.5 Hyperlipidemia, unspecified; E11.21 Type 2 diabetes mellitus with diabetic nephropathy; M1A.9XX0 Chronic gout, unspecified, without tophus (tophi); I70.208 Unspecified atherosclerosis of native arteries of extremities, other extremity; D50.9 Iron deficiency anemia, unspecified; Z99.2 Dependence on renal dialysis; Z79.4 Long term (current) use of insulin
CPT/HCPCS: 36415; 80048; 81001; 82803; 82962; 83036; 83735; 84100; 85025; 90935; 93922; 96360; 99285-25; G0378

== ENCOUNTER 2018-07-23 07:23 | Day surgery (SDC) | payer OTHER ==
[2018-07-23] MEDS ORDERED: SOD CHLORIDE 0.9% 1,000 ML IV (08:30)
[2018-07-23] MEDS ORDERED: LIDOCAINE 1% (MDV) 20 ML INJ (09:36)
[2018-07-23] MEDS ORDERED: HEPARIN 1000 UNITS/NS (A-LINE) 1,000 ML (09:36)
[2018-07-23] MEDS ORDERED: IODIXANOL LOCM 100 ML BTL (09:36)
[2018-07-23] MEDS ORDERED: HUMALOG INSULIN SC (11:30)
== END 2018-07-23 11:35 | disposition home or self-care (01) ==
LOC: CCL 07:23 → SDS 07:23 → CCL 11:35
DX: I12.0 Hypertensive chronic kidney disease with stage 5 chronic kidney disease or end stage renal disease (principal); N18.6 End stage renal disease; E11.9 Type 2 diabetes mellitus without complications
CPT/HCPCS: 36901; 82962; 84132

== ENCOUNTER 2018-08-19 05:00 | Inpatient (IN) | payer MEDICARE, OTHER ==
[2018-08-19] MEDS: SOD CHLORIDE 0.9% 650 ML IV (05:15)
[2018-08-19 05:32] LABS: MODE ROOM AIR; MetHgb Venous 0.3 %; Sample Type Blood venous; Site VENOUS LINE; Venous COHb 0.8 %; Venous Fraction OxyHgb 58.1 %; Venous Oxygen Sat 58.7 mmHG (55.0-75.0); Venous Total Hemglobin 13.5 g/dl
[2018-08-19 05:37] LABS: ADD MAN DIFF? NO
[2018-08-19] MEDS: CA CHLORIDE 10% 10 ML SYRINGE IV ×2 (05:38→06:49)
[2018-08-19] MEDS: ONDANSETRON 4 MG INJ IV (05:38)
[2018-08-19 05:40] LABS: ABNORMAL IP MESSAGE 1; BASOPHILS % 0.3 % (0.0-2.0); HEMATOCRIT 44.2 % (42.0-52.0); HEMOGLOBIN 12.7 g/dl (14.0-18.0); LYMPHOCYTES # 0.3 10^3/ul (0.8-2.9); MEAN CORPUSCULAR HEMOGLOBIN 32.2 pg (29.0-33.0); MEAN CORPUSCULAR HGB CONC 28.7 g/dl (32.0-37.0); MEAN CORPUSCULAR VOLUME 112.2 fl (82.0-101.0); MEAN PLATELET VOLUME 12.8 fl (7.4-10.4); MONOCYTE # 0.5 10^3/ul (0.3-0.9); MONOCYTES % 3.9 % (0.0-11.0); NEUTROPHILS % 93.3 % (39.0-77.0); PLATELET COUNT 249 10^3/UL (140-415); POSITIVE DIFF @See below; RED BLOOD COUNT 3.94 10^6/ul (4.70-6.10); RED CELL DISTRIBUTION WIDTH 15.1 % (11.5-14.5)
[2018-08-19 05:40] LABS: WHITE BLOOD COUNT 12.9 10^3/ul (4.8-10.8)
[2018-08-19 05:48] LABS: ANION GAP 16 (5-13); BLOOD UREA NITROGEN 55 mg/dl (7-20); CARBON DIOXIDE 15 mmol/L (21-31); CHLORIDE 75 mmol/L (97-110); CREATININE 5.02 mg/dl (0.61-1.24); Estimated GFR 12 mL/min (>60); MAGNESIUM 1.7 mg/dl (1.7-2.5); PHOSPHORUS 7.7 mg/dl (2.5-4.9)
[2018-08-19] MEDS ORDERED: DEXTROSE 50% 50 ML SYRINGE IV ×8 (06:00→18:30)
[2018-08-19] MEDS: INSULIN REGULAR, HUMAN 100 UNIT/1 ML 3ML VIAL IVP ×2 (06:02→06:50)
[2018-08-19] MEDS: NA BICARBONATE 8.4% 50 ML SYG IV ×2 (06:03→06:51)
[2018-08-19] MEDS: SODIUM POLYSTYRENE 15 GM KIT (POWDER + SORBITOL) PO ×2 (06:07→06:16)
[2018-08-19 06:18] LABS: GLUCOSE 1728 mg/dl (70-220); POTASSIUM 9.3 mmol/L (3.5-5.1); SODIUM 106 mmol/L (135-144)
[2018-08-19] MEDS ORDERED: DEXTROSE 10%/0.45% NACL 1,000 ML IV (06:20)
[2018-08-19] MEDS ORDERED: D10/0.45% NACL + KCL 40 MEQ 1,000 ML IV (06:20)
[2018-08-19] MEDS ORDERED: NS + KCL 30 MEQ 1,000 ML IV (06:20)
[2018-08-19] MEDS ORDERED: NS + KCL 40 MEQ 1,000 ML IV (06:20)
[2018-08-19] MEDS ORDERED: D10/0.45% NACL + KCL 30 MEQ 1,000 ML IV (06:20)
[2018-08-19] MEDS ORDERED: ACETAMINOPHEN 325 MG TAB PO (06:30)
[2018-08-19] MEDS ORDERED: ONDANSETRON 4 MG INJ IV ×2 (06:30→07:30)
[2018-08-19] MEDS: LACTATED RINGER'S 650 ML IV (06:46)
[2018-08-19] MEDS: ALBUTEROL 0.5% (NEB) 2.5 MG/0.5 ML AMP INH (07:00)
[2018-08-19] MEDS: INSULIN REGULAR, HUMAN 100 UNIT in SOD CHLORIDE 0.9% 100 ML IV (07:05)
[2018-08-19] MEDS: SOD CHLORIDE 0.9% 1,000 ML IV ×3 (07:06→13:37)
[2018-08-19] MEDS ORDERED: ACETAMINOPHEN 650MG/20.3ML CUP PO (07:30)
[2018-08-19] MEDS: INSULIN HUMAN REGULAR 100 UNIT in SOD CHLORIDE 0.9% 99 ML IV ×3 (08:01→13:18)
[2018-08-19 08:04] LABS: HAAIG REFLEX REFLEX FILED
[2018-08-19] MEDS: ACCU-CHEK XX ×13 (08:09→21:08)
[2018-08-19] MEDS: SOD CHLORIDE 0.9% 500 ML IV ×2 (08:44→09:00)
[2018-08-19] MEDS: HEPARIN 5,000 UNIT/1 ML VIAL SC ×3 (08:55→21:12)
[2018-08-19] MEDS: FAMOTIDINE 20 MG INJ IV (08:57)
[2018-08-19] MEDS: ALBUTEROL 0.083% (NEB) 2.5 MG/3 ML AMP NEB ×4 (09:00→19:47)
[2018-08-19] MEDS: IPRATROPIUM (NEB) 0.5 MG/2.5 ML AMP NEB ×4 (09:00→19:46)
[2018-08-19] MEDS ORDERED: SOD CHLORIDE 0.9% 1,000 ML IV (09:00)
[2018-08-19 09:02] LABS: ANION GAP 16 (5-13); BLOOD UREA NITROGEN 57 mg/dl (7-20); CALCIUM 9.6 mg/dl (8.4-10.2); CARBON DIOXIDE 17 mmol/L (21-31); CHLORIDE 79 mmol/L (97-110); CREATININE 4.95 mg/dl (0.61-1.24); Estimated GFR 13 mL/min (>60); HDL CHOLESTEROL 100 mg/dl (27-67); LDL CHOLESTEROL,CALCULATED 86 mg/dl; MAGNESIUM 1.9 mg/dl (1.7-2.5); PHOSPHORUS 8.6 mg/dl (2.5-4.9); TRIGLYCERIDES 79 mg/dl (0-149)
[2018-08-19 09:02] LABS: CHOLESTEROL 202 mg/dl (100-200)
[2018-08-19 09:12] LABS: SODIUM 112 mmol/L (135-144)
[2018-08-19 09:13] LABS: POTASSIUM 6.8 mmol/L (3.5-5.1)
[2018-08-19 09:29] LABS: HEPATITIS B SURFACE ANTIGEN NEGATIVE (NEGATIVE)
[2018-08-19 09:47] LABS: HEPATITIS B CORE ANTIBODY NEGATIVE (NEGATIVE); HEPATITIS C VIRAL ANTIBODY NEGATIVE (NEGATIVE)
[2018-08-19 10:28] LABS: GLUCOSE 1703 mg/dl (70-220)
[2018-08-19 11:27] LABS: ANION GAP 14 (5-13); BLOOD UREA NITROGEN 57 mg/dl (7-20); CALCIUM 9.4 mg/dl (8.4-10.2); CARBON DIOXIDE 19 mmol/L (21-31); CHLORIDE 84 mmol/L (97-110); CREATININE 4.91 mg/dl (0.61-1.24); Estimated GFR 13 mL/min (>60); MAGNESIUM 1.9 mg/dl (1.7-2.5); PHOSPHORUS 5.5 mg/dl (2.5-4.9); POTASSIUM 4.8 mmol/L (3.5-5.1)
[2018-08-19 11:44] LABS: SODIUM 117 mmol/L (135-144)
[2018-08-19 11:45] LABS: GLUCOSE 1345 mg/dl (70-220)
[2018-08-19 12:38] LABS: ANION GAP 11 (5-13); BLOOD UREA NITROGEN 33 mg/dl (7-20); CARBON DIOXIDE 25 mmol/L (21-31); CHLORIDE 92 mmol/L (97-110); CREATININE 2.83 mg/dl (0.61-1.24); Estimated GFR 24 mL/min (>60); MAGNESIUM 1.9 mg/dl (1.7-2.5); PHOSPHORUS 3.4 mg/dl (2.5-4.9); POTASSIUM 3.1 mmol/L (3.5-5.1); SODIUM 128 mmol/L (135-144)
[2018-08-19 12:51] LABS: GLUCOSE 628 mg/dl (70-220)
[2018-08-19] MEDS: HEPARIN 1000 UNITS/ML 10 ML INJ CATHETER (13:28)
[2018-08-19] MEDS: POTASSIUM CHLORIDE 100 ML IVPB (13:37)
[2018-08-19] MEDS: POTASSIUM CHLORIDE 10 MEQ in SOD CHLORIDE 0.9% 1,000 ML IV (16:23)
[2018-08-19 17:35] LABS: ANION GAP 13 (5-13); BLOOD UREA NITROGEN 32 mg/dl (7-20); CALCIUM 9.8 mg/dl (8.4-10.2); CARBON DIOXIDE 23 mmol/L (21-31); CHLORIDE 94 mmol/L (97-110); CREATININE 3.41 mg/dl (0.61-1.24); Estimated GFR 19 mL/min (>60); GLUCOSE 355 mg/dl (70-220); POTASSIUM 4.6 mmol/L (3.5-5.1); SODIUM 130 mmol/L (135-144)
[2018-08-19] MEDS ORDERED: GLUCOSE GEL 15 GRAM TUBE BUCCAL (18:30)
[2018-08-19] MEDS ORDERED: GLUCOSE GEL 15 GRAM TUBE PO ×2 (18:30)
[2018-08-19] MEDS ORDERED: GLUCAGON 1 MG INJ IM (18:30)
[2018-08-19 18:38] LABS: CREATINE KINASE 1068 IU/L (23-200)
[2018-08-19 18:51] LABS: CK INDEX 0.9
[2018-08-19] MEDS ORDERED: INSULIN ASPART [NOVOLOG] 3 ML PEN SC (19:00)
[2018-08-19 19:04] LABS: CK-MB 9.91 ng/ml (0.0-2.4); TROPONIN-I 0.149 ng/ml (0.000-0.120)
[2018-08-19] MEDS ORDERED: [UNRECOGNIZED DRUG - OTHER] SC (21:00)
[2018-08-19] MEDS: INSULIN ASPART [NOVOLOG] 3 ML PEN SC (21:11)
[2018-08-20] MEDS: INSULIN ASPART [NOVOLOG] 3 ML PEN SC ×4 (01:08→17:58)
[2018-08-20] MEDS: IPRATROPIUM (NEB) 0.5 MG/2.5 ML AMP NEB ×3 (01:22→08:39)
[2018-08-20] MEDS: ALBUTEROL 0.083% (NEB) 2.5 MG/3 ML AMP NEB ×3 (01:23→08:39)
[2018-08-20] MEDS: ACCU-CHEK XX ×15 (03:09→21:08)
[2018-08-20] MEDS ORDERED: DEXTROSE 50% 50 ML SYRINGE IV ×2 (03:30)
[2018-08-20] MEDS: INSULIN HUMAN REGULAR 100 UNIT in SOD CHLORIDE 0.9% 99 ML IV (04:23)
[2018-08-20 06:08] LABS: ADD MAN DIFF? NO
[2018-08-20 06:17] LABS: WHITE BLOOD COUNT 11.7 10^3/ul (4.8-10.8)
[2018-08-20 06:17] LABS: BASOPHILS % 0.3 % (0.0-2.0); EOSINOPHILS % 0.3 % (0.0-7.0); HEMATOCRIT 36.8 % (42.0-52.0); HEMOGLOBIN 12.4 g/dl (14.0-18.0); LYMPHOCYTES # 1.1 10^3/ul (0.8-2.9); LYMPHOCYTES % 9.4 % (15.0-51.0); MEAN CORPUSCULAR HEMOGLOBIN 31.3 pg (29.0-33.0); MEAN CORPUSCULAR HGB CONC 33.7 g/dl (32.0-37.0); MEAN CORPUSCULAR VOLUME 92.9 fl (82.0-101.0); MEAN PLATELET VOLUME 12.5 fl (7.4-10.4); MONOCYTE # 0.6 10^3/ul (0.3-0.9); NEUTROPHIL # 9.9 10^3/ul (1.6-7.5); NEUTROPHILS % 84.6 % (39.0-77.0); PLATELET COUNT 202 10^3/UL (140-415); RED BLOOD COUNT 3.96 10^6/ul (4.70-6.10); RED CELL DISTRIBUTION WIDTH 14.2 % (11.5-14.5)
[2018-08-20] MEDS: HEPARIN 5,000 UNIT/1 ML VIAL SC ×3 (06:23→21:12)
[2018-08-20 06:49] LABS: ANION GAP 9 (5-13); BLOOD UREA NITROGEN 34 mg/dl (7-20); CARBON DIOXIDE 25 mmol/L (21-31); CHLORIDE 96 mmol/L (97-110); CREATINE KINASE 684 IU/L (23-200); CREATININE 4.19 mg/dl (0.61-1.24); Estimated GFR 15 mL/min (>60); GLUCOSE 398 mg/dl (70-220); MAGNESIUM 1.7 mg/dl (1.7-2.5); PHOSPHORUS 4.8 mg/dl (2.5-4.9); POTASSIUM 4.2 mmol/L (3.5-5.1); SODIUM 130 mmol/L (135-144)
[2018-08-20 06:53] LABS: CK INDEX 0.9
[2018-08-20 07:08] LABS: CK-MB 5.89 ng/ml (0.0-2.4)
[2018-08-20] MEDS ORDERED: INSULIN ASPART [NOVOLOG] 3 ML PEN SC ×2 (07:35)
[2018-08-20] MEDS: INSULIN GLARGINE [LANTus] (100 UNITS/ML) SYG SC (09:36)
[2018-08-20] MEDS: SOD CHLORIDE 0.9% 1,000 ML IV (11:12)
[2018-08-20] MEDS ORDERED: ALBUTEROL/IPRATROPIUM (NEB) 3 ML AMP HHN (13:00)
[2018-08-20] MEDS ORDERED: traMADol 50 MG TAB PO (17:30)
[2018-08-20] MEDS: AL HYDROX/MG HYDROX/SIMETH 30 ML CUP PO (22:03)
[2018-08-21] MEDS: PANTOPRAZOLE (EC) 40 MG TAB PO (05:06)
[2018-08-21 05:27] LABS: ADD MAN DIFF? NO
[2018-08-21] MEDS: HEPARIN 5,000 UNIT/1 ML VIAL SC ×3 (05:28→21:14)
[2018-08-21 05:30] LABS: BASOPHILS % 0.5 % (0.0-2.0); EOSINOPHILS # 0.2 10^3/ul (0.0-0.5); EOSINOPHILS % 2.4 % (0.0-7.0); HEMATOCRIT 34.2 % (42.0-52.0); HEMOGLOBIN 11.5 g/dl (14.0-18.0); LYMPHOCYTES # 1.3 10^3/ul (0.8-2.9); LYMPHOCYTES % 15.5 % (15.0-51.0); MEAN CORPUSCULAR HEMOGLOBIN 31.3 pg (29.0-33.0); MEAN CORPUSCULAR HGB CONC 33.6 g/dl (32.0-37.0); MEAN CORPUSCULAR VOLUME 93.2 fl (82.0-101.0); MEAN PLATELET VOLUME 12.1 fl (7.4-10.4); MONOCYTE # 0.7 10^3/ul (0.3-0.9); NEUTROPHILS % 73.4 % (39.0-77.0); NUCLEATED RED BLOOD CELLS% 0.2 /100WBC (0.0-0.0); PLATELET COUNT 202 10^3/UL (140-415); RED BLOOD COUNT 3.67 10^6/ul (4.70-6.10); RED CELL DISTRIBUTION WIDTH 14.6 % (11.5-14.5)
[2018-08-21 05:30] LABS: WHITE BLOOD COUNT 8.2 10^3/ul (4.8-10.8)
[2018-08-21 05:50] LABS: ANION GAP 7 (5-13); BLOOD UREA NITROGEN 37 mg/dl (7-20); CALCIUM 8.9 mg/dl (8.4-10.2); CARBON DIOXIDE 25 mmol/L (21-31); CHLORIDE 101 mmol/L (97-110); CREATININE 4.59 mg/dl (0.61-1.24); Estimated GFR 14 mL/min (>60); GLUCOSE 248 mg/dl (70-220); POTASSIUM 4.1 mmol/L (3.5-5.1); SODIUM 133 mmol/L (135-144)
[2018-08-21] MEDS ORDERED: INSULIN ASPART [NOVOLOG] 3 ML PEN SC (07:35)
[2018-08-21] MEDS: ACCU-CHEK XX ×5 (08:19→21:56)
[2018-08-21] MEDS: INSULIN ASPART [NOVOLOG] 3 ML PEN SC ×4 (08:32→22:10)
[2018-08-21] MEDS: INSULIN GLARGINE [LANTus] (100 UNITS/ML) SYG SC (09:19)
[2018-08-21] MEDS: DIPHENHYDRAMINE 50 MG INJ IV (11:30)
[2018-08-21] MEDS: SOD CHLORIDE 0.9% 1,000 ML IV (11:30)
[2018-08-21] MEDS: HEPARIN 1000 UNITS/ML 10 ML INJ CATHETER (12:49)
[2018-08-21] MEDS: ZOLPIDEM 5 MG TAB PO (21:04)
[2018-08-22] MEDS: PANTOPRAZOLE (EC) 40 MG TAB PO (06:00)
[2018-08-22] MEDS: HEPARIN 5,000 UNIT/1 ML VIAL SC (06:05)
[2018-08-22 06:41] LABS: ADD MAN DIFF? NO
[2018-08-22 06:50] LABS: WHITE BLOOD COUNT 9.1 10^3/ul (4.8-10.8)
[2018-08-22 06:50] LABS: BASOPHIL # 0.1 10^3/ul (0.0-0.1); BASOPHILS % 0.7 % (0.0-2.0); EOSINOPHILS # 0.3 10^3/ul (0.0-0.5); EOSINOPHILS % 3.1 % (0.0-7.0); HEMOGLOBIN 12.2 g/dl (14.0-18.0); LYMPHOCYTES # 1.4 10^3/ul (0.8-2.9); LYMPHOCYTES % 15.2 % (15.0-51.0); MEAN CORPUSCULAR HEMOGLOBIN 31.3 pg (29.0-33.0); MEAN CORPUSCULAR VOLUME 94.9 fl (82.0-101.0); MEAN PLATELET VOLUME 11.9 fl (7.4-10.4); MONOCYTE # 0.7 10^3/ul (0.3-0.9); MONOCYTES % 7.2 % (0.0-11.0); NEUTROPHIL # 6.7 10^3/ul (1.6-7.5); NEUTROPHILS % 73.2 % (39.0-77.0); NUCLEATED RED BLOOD CELLS% 0.2 /100WBC (0.0-0.0); PLATELET COUNT 232 10^3/UL (140-415); RED CELL DISTRIBUTION WIDTH 14.6 % (11.5-14.5)
[2018-08-22] MEDS: INSULIN GLARGINE [LANTus] (100 UNITS/ML) SYG SC (08:00)
[2018-08-22] MEDS: INSULIN ASPART [NOVOLOG] 3 ML PEN SC ×2 (09:07→12:37)
== END 2018-08-22 13:28 | disposition home health service (06) | DRG 637 ==
LOC: TEL 08-21 05:50 → E/R 05:00 → ICU 06:26
PROVIDERS: Family Medicine
PROC: 4A033R1 Measurement of Arterial Saturation, Peripheral, Percutaneous Approach (ICD-10-PCS; principal; 2018-08-19)
PROC: 5A1D70Z Performance of Urinary Filtration, Intermittent, Less than 6 Hours Per Day (ICD-10-PCS; 2018-08-19)
DX: E10.10 Type 1 diabetes mellitus with ketoacidosis without coma (principal); N18.6 End stage renal disease; G93.41 Metabolic encephalopathy; I12.0 Hypertensive chronic kidney disease with stage 5 chronic kidney disease or end stage renal disease; E87.1 Hypo-osmolality and hyponatremia; I42.9 Cardiomyopathy, unspecified; T85.614A Breakdown (mechanical) of insulin pump, initial encounter; E87.5 Hyperkalemia; E86.0 Dehydration; E78.5 Hyperlipidemia, unspecified; M10.9 Gout, unspecified; E10.40 Type 1 diabetes mellitus with diabetic neuropathy, unspecified; E10.319 Type 1 diabetes mellitus with unspecified diabetic retinopathy without macular edema; E10.21 Type 1 diabetes mellitus with diabetic nephropathy; R94.31 Abnormal electrocardiogram [ECG] [EKG]; Z87.891 Personal history of nicotine dependence; R74.8 Abnormal levels of other serum enzymes; Z96.41 Presence of insulin pump (external) (internal); E10.22 Type 1 diabetes mellitus with diabetic chronic kidney disease; Z79.82 Long term (current) use of aspirin; Z99.2 Dependence on renal dialysis; Z91.19 Patient's noncompliance with other medical treatment and regimen
CPT/HCPCS: 36415; 71045; 72170; 80048; 80061; 82306; 82550; 82553; 82803; 82962; 83036; 83735; 84100; 84484; 85025; 86704; 86709; 86803; 87081; 87340; 90935; 93005; 93306; 94640; 94664; 96374; 96375; 99285-25